=== PATIENT | female | born 1955 | race Caucasian/White ===

== ENCOUNTER 2019-07-14 01:31 | Day surgery (SDC) | payer MEDICARE, OTHER, SELFPAY ==
[2019-07-14 07:52] VITALS: BP 143/72; PULSE 87; RESP 16; TEMP 36.7; O2SAT 94
[2019-07-14] MEDS: LACTATED RINGERS 1,000 ML 150 ML IV CONT (08:01)
--- NOTE | 2019-07-14 08:22 | WPDANESEPPF ---
Anes - Initial Pre Proc Eval Procedure: Operation Date: 07/14/19 08:30 Proposed Procedures p Esophagogastroduodenoscopy - Kris Morelos MD Date/Time: 07/14/19 08:22 Surgeon: Kris Morelos MD Pre Op Diagnosis: Dysphagia/ Gerd Patient Data Age: 64 Gender: F Height: Weight: 48.6 kg Last Vital Signs Temp 36.7 C 07/14/19 07:52 Pulse 87 07/14/19 07:52 Resp 16 07/14/19 07:52 BP 143/72 H 07/14/19 07:52 Pulse Ox 94 07/14/19 07:52 Allergies Allergy/AdvReac Type Severity Reaction Status Date / Time erythromycin base Allergy Severe Unknown Verified 07/14/19 07:50 ethyl alcohol Allergy Severe Unknown Verified 07/14/19 07:50 clotrimazole Allergy Intermediate ALLERGY IS Verified 07/14/19 07:50 TO FUNGICIDAL FOOT ANTIBIOTIC levofloxacin Allergy Unknown Unknown Verified 07/14/19 07:50 pitavastatin Allergy Unknown Unknown Verified 07/14/19 07:50 Quinolones Allergy Unknown Unknown Verified 07/14/19 07:50 simvastatin Allergy Unknown Unknown Verified 07/14/19 07:50 FACTIVE Allergy Severe HIVES Uncoded 07/14/19 07:50 Home Medications Medication Instructions Recorded Confirmed Type esomeprazole magnesium 40 mg 40 mg PO DAILY 04/25/19 07/08/19 History capsule,delayed release levothyroxine 100 mcg tablet 100 mcg PO DAILY 04/25/19 07/08/19 History inhalational spacing device #1 each 05/13/19 Rx albuterol sulfate 90 mcg/actuation 1 puff INHALATION Q4H PRN #8.5 gm 06/15/19 07/08/19 Rx aerosol inhaler rosuvastatin 5 mg tablet 5 mg PO DAILY #30 tablet 06/17/19 07/08/19 Rx Vitamin C 1 tablet PO DAILY 07/14/19 07/14/19 History Vitamin D3 1 tablet PO DAILY 07/14/19 07/14/19 History potassium chloride 1 tablet PO DAILY 07/14/19 07/14/19 History Patient hx anesthesia problems: none Family hx anesthesia problems: none PMFSH Past Medical History Medical History Adenoma of left adrenal gland Age-related osteoporosis without current pathological fracture Chronic infection of sinus Colon polyps COPD (chronic obstructive pulmonary disease) Fracture of finger of right hand Hypercholesterolemia Hypothyroidism IBS (irritable bowel syndrome) IFG (impaired fasting glucose) Mixed hyperlipidemia Surgical History Surgical History (Updated 06/07/19 @ 16:32 by ISIDORO Decker) History of thyroidectomy S/P cholecystectomy Status post left breast lumpectomy Family History Family History Sibling Family history of malignant neoplasm of cervix Multiple myeloma Father Malignant neoplasm of prostate Family history of lung cancer Social History Social History Years smoked: 45 Smoking status: Light tobacco smoker Tobacco type: cigarettes Second hand tobacco smoke exposure: No Alcohol intake: never Substance use: never Substance use type: does not use Gender identity (if verbalized by the patient): Female Anes - Eval Final PreProcedure Day of Procedure 07/14/19 08:22 Patient weight: normal Heart: regular rate and rhythm Lungs: clear to auscultation Airway: Mallampati scale class II, special considerations poor opening and other (hx of left TMJ surgery) Neurological: alert and oriented Last oral intake: >/= 8 hours ASA classification: III Emergent: no Anesthetic plan: proceed Anesthesia type and monitoring: general Informed Consent: The patient's anesthetic plan and its attendant risks and benefits were discussed with the patient/family/POA. Questions were solicited and answers provided to the satisfaction of the patient/family/POA.
--- NOTE | 2019-07-14 08:45 | WPDGICN ---
Assessment and Plan Additional Plan This is a 64-year-old white female patient seen in evaluation at the request of Dr. Blake Urban. Patient reports difficulty swallowing. She notices more difficulty with solid foods such as meat. Food seems to catch in the mid portion of the chest and is worse over the last 6 months. Sometimes she will also have excess phlegm in her throat with this. She will vomit to relieve herself. Patient has taken Nexium for some time. She has had no recent heartburn. In 2006 had an EGD with pyloric channel ulcer. She has also been treated for GE reflux disease. Past medical history is significant for previous cholecystectomy. In 2006 had a colon polyp. Most recent colonoscopy was 2016. Family history is noncontributory. Allergies include erythromycin. Levofloxacin. Quinolones. Simvastatin. Medications include albuterol, Nexium. Levothyroxine. Potassium. Rosuvastatin. In vitamins. Review of systems is significant for about 8 lb weight loss over recent months. Physical exam reveals her to be alert. Vital signs stable. HEENT exam unremarkable. Lungs are clear to auscultation and percussion. Heart is without murmur or extra sounds. Abdominal exam bowel sounds are present soft nontender with no hepatosplenomegaly. Digital external rectal exam deferred. Extremities reveal several fingers on her right hand bandaged. Impression 1. Dysphagia. 2. GE reflux disease. 3. History of colon polyps. 4. Weight loss. Plan is to proceed with EGD to assess for her swallowing difficulties. Also because of history of peptic ulcer disease and GE reflux. Continue proton pump inhibitors for now along with anti-reflux measures. A colonoscopy is suggested in 2020. Because of her prior history of colon polyps. GI Consult Note Consult date/time: 07/14/19 08:45 HPI: Gi Valenzuela is a 64 year old female [facility] Past Medical History Medical History Adenoma of left adrenal gland Age-related osteoporosis without current pathological fracture Chronic infection of sinus Colon polyps COPD (chronic obstructive pulmonary disease) Fracture of finger of right hand Hypercholesterolemia Hypothyroidism IBS (irritable bowel syndrome) IFG (impaired fasting glucose) Mixed hyperlipidemia Surgical History Surgical History (Updated 06/07/19 @ 16:32 by ISIDORO Decker) History of thyroidectomy S/P cholecystectomy Status post left breast lumpectomy Family History Family History Sibling Family history of malignant neoplasm of cervix Multiple myeloma Father Malignant neoplasm of prostate Family history of lung cancer Social History Social History Years smoked: 45 Smoking status: Light tobacco smoker Tobacco type: cigarettes Second hand tobacco smoke exposure: No Alcohol intake: never Substance use: never Substance use type: does not use Gender identity (if verbalized by the patient): Female Meds Home Medications and Allergies Home Medications Medication Instructions Recorded Confirmed Type esomeprazole magnesium 40 mg 40 mg PO DAILY 04/25/19 07/08/19 History capsule,delayed release levothyroxine 100 mcg tablet 100 mcg PO DAILY 04/25/19 07/08/19 History inhalational spacing device #1 each 05/13/19 Rx albuterol sulfate 90 mcg/actuation 1 puff INHALATION Q4H PRN #8.5 gm 06/15/19 07/08/19 Rx aerosol inhaler rosuvastatin 5 mg tablet 5 mg PO DAILY #30 tablet 06/17/19 07/08/19 Rx Vitamin C 1 tablet PO DAILY 07/14/19 07/14/19 History Vitamin D3 1 tablet PO DAILY 07/14/19 07/14/19 History potassium chloride 1 tablet PO DAILY 07/14/19 07/14/19 History Allergies Allergy/AdvReac Type Severity Reaction Status Date / Time erythromycin base Allergy Severe Unknown Verified 07/14/19 07:50 ethyl alcohol Allergy Sever
[2019-07-14 09:12] VITALS: BP 103/59; PULSE 75; RESP 22; O2SAT 95
[2019-07-14 09:22] VITALS: BP 120/75; PULSE 80; RESP 21; O2SAT 95
[2019-07-14 09:32] VITALS: BP 123/77; PULSE 79; RESP 22; O2SAT 97
[2019-07-14 09:42] VITALS: BP 119/80; PULSE 80; RESP 23; O2SAT 98
== END 2019-07-14 09:45 | disposition home or self-care (01) ==
PROVIDERS: PCP Family Medicine; Visit Provider Internal Medicine Gastroenterology
PROC: 0DJ08ZZ Inspection of Upper Intestinal Tract, Via Natural or Artificial Opening Endoscopic (ICD-10-PCS; CPT 43235; principal; 2019-07-14 08:30)
DX: Q39.4 Esophageal web (principal); K21.9 Gastro-esophageal reflux disease without esophagitis; R63.4 Abnormal weight loss; J44.9 Chronic obstructive pulmonary disease, unspecified; E78.00 Pure hypercholesterolemia, unspecified; E03.9 Hypothyroidism, unspecified; E78.2 Mixed hyperlipidemia; K58.9 Irritable bowel syndrome, unspecified; M81.0 Age-related osteoporosis without current pathological fracture; F17.210 Nicotine dependence, cigarettes, uncomplicated
CPT/HCPCS: 43235; 43450; J2001; J2704; J7120

== ENCOUNTER → 2019-07-21 12:27 | Outpatient (CLI) | payer MEDICARE, OTHER, SELFPAY ==
--- NOTE | ~2019-07-21 | CT_ITS ---
EXAMINATION: CT lung screening EXAM DATE: 07/21/2019 12:51 INDICATION: Personal history of nicotine dependence. TECHNIQUE: Spiral low dose CT of the chest without contrast. Axial, coronal and sagittal images were reviewed. The dose-length product (DLP) for this examination was 46.62 mGy-cm. The exposure was ta ilored according to patient size (auto mA exposure control), and iterative reconstruction (ASIR) was used as additional dose reduction technique. Comparison is made to prior examination from 03/12/2018. FINDINGS: There is mild emphysema and moderate hyperinflation. Some small predominantly linear opaci ties likely postinfectious which are unchanged. Tracheobronchial tree is patent. There is no media stinal, hilar or axillary lymphadenopathy. There are no pleural or pericardial effusions. There i s no pneumothorax. Heart normal in size. There is mild coronary arterial calcification, arterial sclerosis. Some left adrenal gland hypertrophy or small adenomas. There is thoracic spondylosis with out osteoblastic or osteolytic lesions identified. IMPRESSION: Lung-RADS category 1, negative (<1%chance of malignancy); recommend continued LDCT screen ing in 1 year. > Reviewed, dictated and finalized at location B. ETING SERVICES SPECIALIST IMPRESSION: Lung-RADS category 1, negative (<1%chance of malignancy); recommend continued LDCT screening in 1 year. >
--- NOTE | ~2019-07-21 | MM_ITS ---
EXAMINATION: MM screening [facility] w [facility] HISTORY: Screening mammogram TECHNIQUE: Craniocaudal and mediolateral oblique 3-D tomosynthesis images were obtained and synthetic 2-D images were generated. CAD analysis was submitted and interpreted. COMPARISON: 03/18/2018 diagnostic right digital mammogram 03/12/2018, 03/03/2017, 06/15/2015 bilateral digital screening mammogram examinations BREAST PARENCHYMAL COMPOSITION: The breasts are heterogeneously dense, which may obscure small masses . FINDINGS: Occasional benign calcifications. There is no evidence of suspicious mass, calcification, o r architectural distortion to suggest malignancy in either breast. There has been no suspicious inter patricia change. IMPRESSION: 1. No mammographic evidence of malignancy. 2. Recommend routine screening mammography in one year. BI-RADS Category 2: Benign finding(s). Reviewed, dictated and finalized at location A. SS CONSULTANT
== END ==
PROVIDERS: PCP Family Medicine; Visit Provider Physician Assistant
DX: Z12.31 Encounter for screening mammogram for malignant neoplasm of breast (principal); Z12.2 Encounter for screening for malignant neoplasm of respiratory organs; Z87.891 Personal history of nicotine dependence
CPT/HCPCS: 77063; 77067; G0297

== ENCOUNTER 2019-08-16 15:05 | Outpatient (CLI) | payer MEDICARE, OTHER, SELFPAY ==
[2019-08-16 15:25] LABS: Basophils Absolute Auto 0.1 K/mm3 (0.0-0.1); Basophils Percent Auto 0.5 % (0.2-1.2); Eosinophils Absolute Auto 0.1 K/mm3 (0-0.3); Eosinophils Percent Auto 0.9 % (0-4.4); Hematocrit 39.8 % (37.0-47.0); Hemoglobin 13.2 g/dL (12.0-15.0); Immature Granulocyte Absolute 0.03 K/mm3 (0.00-0.031); Immature Granulocyte Percent A 0.3 % (0-0.5); Lymphocytes Absolute Auto 2.28 K/mm3 (0.9-3.2); Lymphocytes Percent Auto 20.6 % (18.3-44.2); Mean Corpuscular HGB Conc 33.2 g/dl (32-36); Mean Corpuscular Hemoglobin 30.5 pg (26-34); Mean Corpuscular Volume 91.9 fl (80-100); Mean Platelet Volume 8.6 fl (7.4-10.4); Monocytes Percent Auto 8.8 % (2.6-8.5); Neutrophils Absolute Auto 7.7 K/mm3 (1.3-6.7); Neutrophils Percent Auto 68.9 % (45.5-73.1); Platelet Count Result 343 k/mm3 (150-375); Red Blood Count 4.33 M/mm3 (4.2-5.4); Red Cell Distribution Width 13.4 % (11.5-14.5); White Blood Count 11.1 K/mm3 (4.5-10.0)
[2019-08-16 16:46] LABS: Alanine Aminotransferase 14 U/L (4-35); Albumin Level 4.3 g/dL (3.5-5.1); Alkaline Phosphatase 64 U/L (38-126); Aspartate Amino Transferase 22 U/L (14-36); Bilirubin,Total 0.3 mg/dL (0.2-1.3); Blood Urea Nitrogen 12 mg/dL (7-17); CRP < 0.5 mg/dL (<1.0); Calcium 9.4 mg/dL (8.4-10.2); Carbon Dioxide 32 mmol/L (22-30); Chloride 101 mmol/L (98-107); Estimated Glomerular Filt Rate 50; Glucose 98 mg/dL (65-105); Lactate Dehydrogenase 385 U/L (313-618); Potassium 4.7 mmol/L (3.4-5.0); Sodium 139 mmol/L (137-145)
[2019-08-16 16:54] LABS: Erythrocyte Sedimentation Rate 19 mm/hr (0-20)
== END 2019-08-16 15:06 | disposition home or self-care (01) ==
LOC: ANHLAB 15:10
PROVIDERS: PCP Family Medicine; Visit Provider Internal Medicine Hematology & Oncology
DX: D72.829 Elevated white blood cell count, unspecified (principal)
CPT/HCPCS: 36415; 80053; 83615; 85025; 85652; 86140; 88184; 88185

== ENCOUNTER 2020-02-28 13:24 | Outpatient (CLI) | payer MEDICARE, OTHER, SELFPAY ==
[2020-02-28 13:40] LABS: Basophils Absolute Auto 0.1 K/mm3 (0.0-0.1); Basophils Percent Auto 0.6 % (0.2-1.2); Eosinophils Absolute Auto 0.1 K/mm3 (0-0.3); Eosinophils Percent Auto 0.9 % (0-4.4); Hematocrit 39.8 % (37.0-47.0); Hemoglobin 13.5 g/dL (12.0-15.0); Immature Granulocyte Absolute 0.04 K/mm3 (0.00-0.031); Immature Granulocyte Percent A 0.4 % (0-0.5); Lymphocytes Absolute Auto 3.36 K/mm3 (0.9-3.2); Lymphocytes Percent Auto 31.4 % (18.3-44.2); Mean Corpuscular HGB Conc 33.9 g/dl (32-36); Mean Corpuscular Hemoglobin 30.9 pg (26-34); Mean Corpuscular Volume 91.1 fl (80-100); Mean Platelet Volume 8.8 fl (7.4-10.4); Monocytes Absolute Auto 0.8 K/mm3 (0.1-0.6); Monocytes Percent Auto 7.7 % (2.6-8.5); Neutrophils Absolute Auto 6.3 K/mm3 (1.3-6.7); Platelet Count Result 336 k/mm3 (150-375); Red Blood Count 4.37 M/mm3 (4.2-5.4); Red Cell Distribution Width 13.3 % (11.5-14.5); White Blood Count 10.7 K/mm3 (4.5-10.0)
== END 2020-02-28 13:25 | disposition home or self-care (01) ==
PROVIDERS: PCP Family Medicine; Visit Provider Internal Medicine Hematology & Oncology
DX: D72.829 Elevated white blood cell count, unspecified (principal)
CPT/HCPCS: 36415; 85025

== ENCOUNTER 2020-04-12 11:41 | Outpatient (NON) | payer MEDICARE, OTHER, SELFPAY ==
[2020-04-12 21:15] LABS: SARS-CoV-2 RNA PCR Negative
== END 2020-04-12 11:42 ==
LOC: ANHCOVIDDT 11:43
PROVIDERS: PCP Family Medicine; Visit Provider Nurse Practitioner Family
DX: R05 Cough (principal); R09.89 Other specified symptoms and signs involving the circulatory and respiratory systems; Z20.828 Contact with and (suspected) exposure to other viral communicable diseases
CPT/HCPCS: 87635; C9803; U0003

== ENCOUNTER 2020-04-24 02:44 | Outpatient (CLI) | payer MEDICARE, OTHER, SELFPAY ==
[2020-04-24 19:47] LABS: SARS-CoV-2 RNA PCR Negative
== END 2020-04-24 02:45 | disposition home or self-care (01) ==
LOC: ANHCOVIDDT 02:44
PROVIDERS: PCP Family Medicine; Visit Provider Internal Medicine Gastroenterology
DX: Z01.818 Encounter for other preprocedural examination (principal); Z20.828 Contact with and (suspected) exposure to other viral communicable diseases
CPT/HCPCS: 87635; C9803; U0003

== ENCOUNTER 2020-04-27 04:16 | Day surgery (SDC) | payer MEDICARE, OTHER, SELFPAY ==
[2020-04-20 14:00] VITALS: BMI 21.3
[2020-04-27 07:57] VITALS: BP 147/71; PULSE 96; RESP 16; TEMP 36.9; O2SAT 92
--- NOTE | 2020-04-27 08:08 | WPDANESEPPF ---
Anes - Initial Pre Proc Eval Procedure: Operation Date: 04/27/20 09:00 Proposed Procedures p Esophagogastroduodenoscopy - Kris Morelos MD Date/Time: 04/27/20 08:08 Surgeon: Kris Morelos MD Pre Op Diagnosis: Esophageal Stricture Patient Data Age: 65 Gender: F Height: 5 ft 2 in Weight: 49 kg Last Vital Signs Temp 36.9 C 04/27/20 07:57 Pulse 96 04/27/20 07:57 Resp 16 04/27/20 07:57 BP 147/71 H 04/27/20 07:57 Pulse Ox 92 04/27/20 07:57 Allergies Allergy/AdvReac Type Severity Reaction Status Date / Time erythromycin base Allergy Severe Unknown Verified 04/27/20 07:56 ethyl alcohol Allergy Severe Unknown Verified 04/27/20 07:56 clotrimazole Allergy Intermediate ALLERGY IS Verified 04/27/20 07:56 TO FUNGICIDAL FOOT ANTIBIOTIC levofloxacin Allergy Unknown Unknown Verified 04/27/20 07:56 pitavastatin Allergy Unknown Unknown Verified 04/27/20 07:56 Quinolones Allergy Unknown Unknown Verified 04/27/20 07:56 simvastatin Allergy Unknown Unknown Verified 04/27/20 07:56 FACTIVE Allergy Severe HIVES Uncoded 04/27/20 07:56 Home Medications Medication Instructions Recorded Confirmed Type inhalational spacing device #1 each 05/13/19 04/27/20 Rx Vitamin C 1 tablet PO DAILY 07/14/19 04/27/20 History Vitamin D3 1 tablet PO DAILY 07/14/19 04/27/20 History blood sugar diagnostic #100 each 10/24/19 04/27/20 Rx esomeprazole magnesium 40 mg 40 mg PO DAILY #90 cap 11/09/19 04/27/20 Rx capsule,delayed release levothyroxine 100 mcg tablet 100 mcg PO DAILY #90 tablet 01/31/20 04/27/20 Rx lancets #100 ea 03/22/20 04/27/20 Rx albuterol sulfate 90 mcg/actuation 1 puff INHALATION Q4H PRN #8.5 gm 04/12/20 04/27/20 Rx aerosol inhaler rosuvastatin 10 mg PO DAILY 04/20/20 04/27/20 History Patient hx anesthesia problems: none Family hx anesthesia problems: none PMFSH Past Medical History Medical History Adenoma of left adrenal gland Age-related osteoporosis without current pathological fracture Chronic infection of sinus Colon polyps COPD (chronic obstructive pulmonary disease) Depression Fracture of finger of right hand HTN (hypertension) Hypercholesterolemia Hypothyroidism IBS (irritable bowel syndrome) IFG (impaired fasting glucose) Mixed hyperlipidemia Surgical History Surgical History History of thyroidectomy S/P cholecystectomy Status post left breast lumpectomy Family History Family History Sibling Family history of malignant neoplasm of cervix Multiple myeloma Father Malignant neoplasm of prostate Family history of lung cancer Social History Social History Years smoked: 45 Smoking status: Light tobacco smoker Tobacco type: cigarettes Second hand tobacco smoke exposure: No Alcohol intake: never Substance use: unknown Substance use type: unknown Living arrangements: with family Gender identity (if verbalized by the patient): Female Spiritual care concerns: No Anes - Eval Final PreProcedure Day of Procedure 04/27/20 08:08 Patient weight: normal Heart: regular rate and rhythm Lungs: decreased breath sounds Airway: Mallampati scale class II Neurological: alert and oriented Last oral intake: >/= 8 hours ASA classification: III Emergent: no Anesthetic plan: proceed Anesthesia type and monitoring: general GIVS and standard monitoring Informed Consent: The patient's anesthetic plan and its attendant risks and benefits were discussed with the patient/family/POA. Questions were solicited and answers provided to the satisfaction of the patient/family/POA.
[2020-04-27] MEDS: LACTATED RINGERS 1,000 ML 150 ML IV CONT (08:12)
--- NOTE | 2020-04-27 09:04 | WPDGICN ---
Assessment and Plan Assessment and plan (1) Dysphagia: Code(s): R13.10 - Dysphagia, unspecified Status: Acute Assessment and Plan: Patient has persistent problems swallowing. Food catches mid substernal portion the chest. Patient known to have esophageal stricture by previous endoscopy. His presumed this has recurred. Most likely on the basis of acid reflux disease. Plan to continue Nexium or similar proton pump inhibitor. Anti-reflux measures encourage. Follow-up EGD will be planned for possible dilatation. GI Consult Note Consult date/time: 04/27/20 09:04 HPI: Gi Valenzuela is a 65 year old female Complains of food catching in the mid substernal portion of the chest. She states solid foods will not pass easily. Symptoms she states now have recurred. She denies any weight loss. She denies any bleeding. Denies any heartburn. Current medications include Nexium 40 mg p.o. daily. Family history is noncontributory. Review of Systems Review of Systems: All systems reviewed & are unremarkable except as noted in HPI and below PMFSH Past Medical History Medical History Adenoma of left adrenal gland Age-related osteoporosis without current pathological fracture Chronic infection of sinus Colon polyps COPD (chronic obstructive pulmonary disease) Depression Fracture of finger of right hand HTN (hypertension) Hypercholesterolemia Hypothyroidism IBS (irritable bowel syndrome) IFG (impaired fasting glucose) Mixed hyperlipidemia Surgical History Surgical History History of thyroidectomy S/P cholecystectomy Status post left breast lumpectomy Family History Family History Sibling Family history of malignant neoplasm of cervix Multiple myeloma Father Malignant neoplasm of prostate Family history of lung cancer Social History Social History Years smoked: 45 Smoking status: Light tobacco smoker Tobacco type: cigarettes Second hand tobacco smoke exposure: No Alcohol intake: never Substance use: unknown Substance use type: unknown Living arrangements: with family Gender identity (if verbalized by the patient): Female Spiritual care concerns: No Meds Home Medications and Allergies Home Medications Medication Instructions Recorded Confirmed Type inhalational spacing device #1 each 05/13/19 04/27/20 Rx Vitamin C 1 tablet PO DAILY 07/14/19 04/27/20 History Vitamin D3 1 tablet PO DAILY 07/14/19 04/27/20 History blood sugar diagnostic #100 each 10/24/19 04/27/20 Rx esomeprazole magnesium 40 mg 40 mg PO DAILY #90 cap 11/09/19 04/27/20 Rx capsule,delayed release levothyroxine 100 mcg tablet 100 mcg PO DAILY #90 tablet 01/31/20 04/27/20 Rx lancets #100 ea 03/22/20 04/27/20 Rx albuterol sulfate 90 mcg/actuation 1 puff INHALATION Q4H PRN #8.5 gm 04/12/20 04/27/20 Rx aerosol inhaler rosuvastatin 10 mg PO DAILY 04/20/20 04/27/20 History Allergies Allergy/AdvReac Type Severity Reaction Status Date / Time erythromycin base Allergy Severe Unknown Verified 04/27/20 07:56 ethyl alcohol Allergy Severe Unknown Verified 04/27/20 07:56 clotrimazole Allergy Intermediate ALLERGY IS Verified 04/27/20 07:56 TO FUNGICIDAL FOOT ANTIBIOTIC levofloxacin Allergy Unknown Unknown Verified 04/27/20 07:56 pitavastatin Allergy Unknown Unknown Verified 04/27/20 07:56 Quinolones Allergy Unknown Unknown Verified 04/27/20 07:56 simvastatin Allergy Unknown Unknown Verified 04/27/20 07:56 FACTIVE Allergy Severe HIVES Uncoded 04/27/20 07:56 Vital Signs Vital Signs - 24 hr 04/27/20 07:57 Temperature 98.5 F Pulse Rate 96 Respiratory Rate 16 Blood Pressure 147/71 H Pulse Oximetry 92 Exam Narrative: Exam Narrative: Physical ex
[2020-04-27] MEDS: BENZOCAINE (*SP) 60 ML SPRAY CAN (HURRICAINE) 1 SPRAY MUCOUS MEM (09:11)
[2020-04-27 09:27] VITALS: BP 119/67; PULSE 80; RESP 20; O2SAT 97
[2020-04-27 09:37] VITALS: BP 123/71; PULSE 81; RESP 19; O2SAT 91
[2020-04-27 09:47] VITALS: BP 150/86; PULSE 81; RESP 21; O2SAT 92
== END 2020-04-27 10:06 | disposition home or self-care (01) ==
PROVIDERS: PCP Family Medicine; Visit Provider Internal Medicine Gastroenterology
PROC: 0DJ08ZZ Inspection of Upper Intestinal Tract, Via Natural or Artificial Opening Endoscopic (ICD-10-PCS; CPT 43235; principal; 2020-04-27 09:00)
DX: R13.10 Dysphagia, unspecified (principal); M81.0 Age-related osteoporosis without current pathological fracture; I10 Essential (primary) hypertension; E78.00 Pure hypercholesterolemia, unspecified; E78.2 Mixed hyperlipidemia; E03.9 Hypothyroidism, unspecified; K58.9 Irritable bowel syndrome, unspecified; J44.9 Chronic obstructive pulmonary disease, unspecified; F17.210 Nicotine dependence, cigarettes, uncomplicated
CPT/HCPCS: 43450; 43235; J2001; J2704; J7120

== ENCOUNTER → 2020-09-03 09:52 | Outpatient (CLI) | payer MEDICARE, OTHER, SELFPAY ==
--- NOTE | ~2020-09-03 | CT_ITS ---
EXAMINATION: CT lung screening DATE: 09/03/2020 10:06 INDICATION: Personal history of tobacco dependence TECHNIQUE: Computed tomography (CT) of the chest was performed without intravenous contrast. The dose -length product was 38.09 mGy-cm. Automated exposure control and iterative reconstruction technique w ere employed. COMPARISON: CT dated 07/21/2019 FINDINGS: There is atherosclerosis of the aorta and coronary arteries. No significant pleural or atilio cardial effusion. Mildly enlarged mediastinal lymph node measuring 1 cm, most likely reactive. Mild e mphysema. No endobronchial lesions. There is right middle lobe atelectasis/scarring. No suspicious pu lmonary nodules or masses. The upper abdomen is unremarkable. No lytic or blastic lesions. Mild thora cic spondylosis. IMPRESSION: 1. . Lung-RADS category 1: Negative. Continue annual screening with noncontrast low-dose chest CT in 12 months. Reviewed, dictated and finalized at location B.
--- NOTE | ~2020-09-03 | DEXA_ITS ---
Bone Density Report Name: Gi Valenzuela Age: 65 Sex: Female Ethnicity: White Date of : 1955 Indication: osteopenia; asthma or emphysema; postmenopausal Referring Provider: Blake Urban Study: Bone densitometry was performed. Exam Date: September 03, 2020 Accession number: [id number] Bone Density: Region BMD T-score Z-score Classification AP Spine (L1-L4) 0.948 -0.9 1.0 Normal Femoral Neck (Left) 0.593 -2.3 -0.7 Osteopenia Total Hip (Left) 0.672 -2.2 -0.9 Osteopenia Femoral Neck (Right) 0.562 -2.6 -1.0 Osteoporosis Total Hip (Right) 0.660 -2.3 -1.0 Osteopenia Total Hip Mean 0.666 -2.3 -1.0 Osteopenia World Health Organization criteria for BMD impression classify patients as: Normal (T-score at or above -1.0), Osteopenia (T-score between -1.0 and -2.5), or Osteoporosis (T-score at or below -2.5). 10-year Fracture Risk: FRAX not reported because: Some T-score for Spine Total or Hip Total or Femoral Neck at or below -2.5 Previous Exams: Region Exam Age BMD T-score BMD Change BMD Change Date g/cm2 vs Baseline vs Previous AP Spine(L1-L4) 09/03/2020 65 0.948 -0.9 -0.053* -0.053* 03/12/2018 63 1.001 -0.4 Total Hip(Left) 09/03/2020 65 0.672 -2.2 -0.069* -0.069* 03/12/2018 63 0.742 -1.6 Total Hip(Right) 09/03/2020 65 0.660 -2.3 -0.064* -0.064* 03/12/2018 63 0.724 -1.8 *Denotes significance at 95% confidence level, LSC for AP Spine = 0.022 g/cm2, LSC for Total Hip = 0.027 g/cm2 Clinical Information Provided by Patient: Smokes Has used the following medications: Vitamin D, Calcium Has the following medical conditions: Asthma or Emphysema Patient maximum height was 63 Menopause Age: 39 No regular weight bearing exercise Does not regularly consume dairy products Onset of menses at age 12 Number of children 2 Impression: The patient has osteoporosis, based on the Right Femoral Neck T-score. The patient has risk factors, including: smoking. The BMD for the AP Spine(L1-L4) decreased, changing by -0.053 since the last DXA exam. The BMD for the Total Hip(Left) decreased, changing by -0.069 since the last DXA exam. The BMD for the Total Hip(Right) decreased, changing by -0.064 since the last DXA exam. Discussion: INCREASED RISK OF FRACTURE. BONE DENSITY IS UNDESIRABLY LOW AT ONE OR MORE SKELETAL SITES, CONSISTENT WITH POSTMENOPAUSAL OSTEOPOROSIS. This patient's lowest T-score meets the [employer]
== END ==
PROVIDERS: PCP Family Medicine; Visit Provider Family Medicine
DX: Z12.2 Encounter for screening for malignant neoplasm of respiratory organs (principal); Z87.891 Personal history of nicotine dependence; Z78.0 Asymptomatic menopausal state; M85.852 Other specified disorders of bone density and structure, left thigh; M85.851 Other specified disorders of bone density and structure, right thigh; M81.0 Age-related osteoporosis without current pathological fracture
CPT/HCPCS: 71271; 77080

== ENCOUNTER → 2020-10-03 15:20 | Outpatient (CLI) | payer MEDICARE, OTHER, SELFPAY ==
--- NOTE | ~2020-10-03 | MM_ITS ---
EXAMINATION: MM screening [facility] BI [facility] HISTORY: Screening mammogram TECHNIQUE: Craniocaudal and mediolateral oblique 3-D tomosynthesis images were obtained and synthetic 2-D images were generated. CAD analysis was submitted and interpreted. COMPARISON: 07/21/2019 bilateral digital screening mammogram 03/18/2018 diagnostic right digital mammogram 03/12/2018, 03/03/2017, 06/15/2015 bilateral digital screening mammogram examinations BREAST PARENCHYMAL COMPOSITION: The breasts are extremely dense, which lowers the sensitivity of mamm ography. FINDINGS: Occasional benign calcifications. There is no evidence of suspicious mass, calcification, o r architectural distortion to suggest malignancy in either breast. There has been no suspicious inter patricia change. IMPRESSION: 1. No mammographic evidence of malignancy. 2. Recommend routine screening mammography in one year. BI-RADS Category 2: Benign finding(s). Reviewed, dictated and finalized at location A.
== END ==
PROVIDERS: PCP Family Medicine; Visit Provider Family Medicine
DX: Z12.31 Encounter for screening mammogram for malignant neoplasm of breast (principal)
CPT/HCPCS: 77063; 77067

== ENCOUNTER 2020-12-03 10:37 | Inpatient (IN) | payer MEDICARE, OTHER, SELFPAY ==
[2020-12-03] VITALS (10 sets, daily range): BP systolic 121–132; BP diastolic 66–76; PULSE 86–103; RESP 13–22; TEMP 36.3–36.7; O2SAT 90–96; BMI 17.7
--- NOTE | ~2020-12-03 | CT_ITS ---
EXAMINATION: CTA chest PE protocol DATE: 12/03/2020 12:49 INDICATION: Shortness of breath TECHNIQUE: Computed tomography angiography (CTA) of the chest was performed with 100 mL Omnipaque-350 intravenous contrast timed to evaluate the pulmonary arteries. Coronal maximum intensity projection 3D-reconstructions were created by the technologist. The dose-length product (DLP) was 142.15 mGy-cm. Automated exposure control and iterative reconstruction technique were employed. COMPARISON: 09/03/2020 FINDINGS: The pulmonary arteries are well-opacified. No pulmonary embolism is identified. There is mi ld emphysema. An opacity of the right lower lobe has the appearance of mucous plugging. There are pat dora small bilateral groundglass and nodular opacities. There is no pleural effusion or pneumothorax. No pathologically enlarged thoracic lymph nodes are identified. The heart size is normal. Cholecystec panchito clips are noted in the right upper quadrant. There is mild thoracic spondylosis. IMPRESSION: 1. No pulmonary embolism. 2. Patchy bilateral nodular and groundglass opacities, consistent with infection/inflammation. Reviewed, dictated and finalized at location B. IMPRESSION: 1. No pulmonary embolism. 2. Patchy bilateral nodular and groundglass opacities, consistent with infectio n/inflammation.
--- NOTE | ~2020-12-03 | XR_ITS ---
EXAMINATION: XR chest 2V DATE: 12/06/2020 09:11 INDICATION: Leukocytosis TECHNIQUE: AP and lateral views of the chest are obtained. COMPARISON: 12/03/2020 FINDINGS: The lungs are free of acute opacities. There is no pleural effusion or pneumothorax. The ca rdiomediastinal silhouette is normal. There is mild thoracic spondylosis. IMPRESSION: 1. No acute cardiopulmonary abnormality. Reviewed, dictated and finalized at location B.
--- NOTE | ~2020-12-03 | XR_ITS ---
EXAMINATION: XR chest 1V portable INDICATION: Shortness of breath TECHNIQUE: Portable AP chest at 1233 hours COMPARISON: 03/08/2013 FINDINGS: The lungs are hyperinflated but free of acute opacities. There is no pleural effusion or pn eumothorax. The cardiomediastinal silhouette is normal. There is calcified atherosclerosis of the aor ta. IMPRESSION: 1. Hyperinflation without acute cardiopulmonary abnormality. Reviewed, dictated and finalized at location B.
--- NOTE | 2020-12-03 11:32 | ECG_ITS ---
Measurements Intervals [place] Rate: 91 P: 91 FL: 139 QRS: -55 QRSD: 94 T: 61 QT: 306 QTc: 377 Interpretive Statements SINUS RHYTHM POSSIBLE RIGHT ATRIAL ENLARGEMENT LEFT AXIS DEVIATION LOW QRS VOLTAGE IN LIMB LEADS BORDERLINE R WAVE PROGRESSION, ANTERIOR LEADS BORDERLINE T WAVE ABNORMALITY- HIGH LATERAL LEADS BASELINE ARTIFACT- I, II, III, AVR, AVL,A VF, V1-V2, V5 BORDERLINE ECG Electronically Signed On 12-03-2020 11:38:46 CDT by Jed Yu D.O.
--- NOTE | 2020-12-03 11:39 | ED.SOB ---
HPI - SOB/Dyspnea General Chief Complaint: Shortness of Breath/Dyspnea Stated Complaint: difficulty breathing Time Seen by Provider: 12/03/20 11:19 Source: patient, family and RN notes reviewed Mode of arrival: ambulatory Limitations: no limitations History of Present Illness HPI Narrative: This is a 65 year old female with history of COPD who presents for evaluation of shortness of breath. She states her symptoms started 3 day ago with productive cough and worsening shortness of breath. She has been using her albuterol inhaler 4 times a day with minimal relief. She also reports runny nose, sore throat but she denies fever , chest pain, nausea, vomiting or diarrhea. She notes she was vaccinated for COVID in August. Her reports patient has been dealing with poor appetite and weight loss for several months, and her PCP has been evaluating. He also notes patient had pneumonia a few years ago. Related Data Home Medications Medication Instructions Recorded Confirmed Vitamin C 1 tablet PO DAILY 07/14/19 12/03/20 Vitamin D3 1 tablet PO DAILY 07/14/19 12/03/20 levothyroxine 88 mcg PO HS 12/03/20 12/03/20 Allergies Allergy/AdvReac Type Severity Reaction Status Date / Time erythromycin base Allergy Severe Unknown Verified 10/19/20 11:01 ethyl alcohol Allergy Severe Unknown Verified 10/19/20 11:01 gemifloxacin [From Factive] Allergy Severe Hives Verified 12/03/20 14:20 clotrimazole Allergy Intermediate ALLERGY IS Verified 10/19/20 11:01 TO FUNGICIDAL FOOT ANTIBIOTIC levofloxacin Allergy Unknown Unknown Verified 10/19/20 11:01 pitavastatin Allergy Unknown Unknown Verified 10/19/20 11:01 Quinolones Allergy Unknown Unknown Verified 10/19/20 11:01 simvastatin Allergy Unknown Unknown Verified 10/19/20 11:01 Review of Systems Review of Systems: All systems reviewed & are unremarkable except as noted in HPI and below PMFSH Past Medical History Medical History Adenoma of left adrenal gland Age-related osteoporosis without current pathological fracture Chronic infection of sinus Colon polyps COPD (chronic obstructive pulmonary disease) Depression Fracture of finger of right hand HTN (hypertension) Hypercholesterolemia Hypothyroidism IBS (irritable bowel syndrome) IFG (impaired fasting glucose) Mixed hyperlipidemia Surgical History Surgical History H/O cataract extraction September 2020 History of thyroidectomy S/P cholecystectomy Status post left breast lumpectomy Family History Family History Sibling Family history of malignant neoplasm of cervix Multiple myeloma Father Malignant neoplasm of prostate Family history of lung cancer Social History Social History (Updated 10/19/20 @ 11:02 by Lillie Mares CMA) Years smoked: 45 Smoking status: Light tobacco smoker Second hand tobacco smoke exposure: No Alcohol intake: current Drinks per week: 2 Substance use: never Substance use type: does not use Gender identity (if verbalized by the patient): Female Sexual Orientation (if Verbalized by the Patient): Straight or Heterosexual Spiritual care concerns: No Exam Const: General: alert Nutritional Appearance: thin Orientation/consciousness: patient oriented x3 Eyes: EOM: EOMs intact bilaterally Chest: Chest palpation & inspection: normal inspection of the chest Resp: Effort & Inspection: normal respiratory effort and tachypneic Auscultation: rales and diminished lung sounds Cardio: Rate: regular rate Rhythm: regular rhythm Heart sounds: no murmurs GI: GI Palp: Yes Soft to palpation, No Tenderness to palpation present (GI) and No Guarding due to palpation present (GI) Auscultation: bowels sounds not normal Neuro: General: patient oriented x3, moves all extremities and CN's II-XI intact
[2020-12-03] MEDS: ALBUTEROL SULFATE NEB 2.5 MG/0.5 ML INH 5 MG INHALATION (11:58)
[2020-12-03] MEDS: IPRATROPIUM BR 0.02% INH SOLN 0.5 MG/2.5 ML VIAL INHALATION (11:59)
[2020-12-03 12:00] LABS: Alveolar/Arterial O2 Gradient 59.2 mmHg; Base Excess ABG 2.5 mEq/l (+/-2.0); Fractional Inspired Oxygen 28 %; HCO3 ABG 28.5 mEq/l (22.0-26.0); Oxygen Content ABG 18.1 %vol (16.0-22.0); Oxygen Saturation ABG 95.7 % (95.0-100.0); PCO2 ABG 49.7 mmHg (35.0-45.0); PO2 ABG 81.8 mmHg (80.0-100.0); PO2 FiO2 Ratio Arterial Blood 2.92 %; Total Hemoglobin 13.5 g/dL (12.0-18.0); pH ABG 7.377 (7.350-7.450)
[2020-12-03 12:01] LABS: Device NASAL CANNULA; Modified Allen's Test Pass; Site Drawn LEFT RADIAL
[2020-12-03] MEDS: predniSONE 20 MG TABLET 40 MG PO (12:04)
[2020-12-03 12:05] LABS: Basophils Percent Auto 0.7 % (0.2-1.2); Eosinophils Percent Auto 0.2 % (0-4.4); Hematocrit 38.3 % (37.0-47.0); Hemoglobin 12.8 g/dL (12.0-15.0); Immature Granulocyte Absolute 0.02 K/mm3 (0.00-0.031); Immature Granulocyte Percent A 0.3 % (0-0.5); Lymphocytes Percent Auto 19.2 % (18.3-44.2); Mean Corpuscular HGB Conc 33.4 g/dl (32-36); Mean Corpuscular Hemoglobin 30.8 pg (26-34); Mean Corpuscular Volume 92.3 fl (80-100); Mean Platelet Volume 8.7 fl (7.4-10.4); Monocytes Absolute Auto 0.6 K/mm3 (0.1-0.6); Monocytes Percent Auto 9.8 % (2.6-8.5); Neutrophils Percent Auto 69.8 % (45.5-73.1); Platelet Count Result 217 k/mm3 (150-375); Red Blood Count 4.15 M/mm3 (4.2-5.4); Red Cell Distribution Width 13.4 % (11.5-14.5); White Blood Count 5.7 K/mm3 (4.5-10.0)
[2020-12-03 12:11] LABS: Lactic Acid Reflex 0.8 mmol/L (0.7-2.1)
[2020-12-03 12:12] LABS: Alanine Aminotransferase 16 U/L (4-35); Alkaline Phosphatase 92 U/L (38-126); Anion Gap 2 mmol/L (8-16); Aspartate Amino Transferase 33 U/L (14-36); Bilirubin,Total 0.1 mg/dL (0.2-1.3); Blood Urea Nitrogen 5 mg/dL (7-17); Calcium 8.7 mg/dL (8.4-10.2); Carbon Dioxide 32 mmol/L (22-30); Chloride 97 mmol/L (98-107); Estimated CRCL calculation 48 ml/min; Estimated Glomerular Filt Rate > 60; Glucose 139 mg/dL (65-105); Sodium 131 mmol/L (137-145)
[2020-12-03 12:14] LABS: INR 0.9; Prothrombin Time 12.6 Seconds (11.1-14.7)
[2020-12-03 12:15] LABS: Partial Thromboplastin Time 34.1 SECONDS (22.3-36.8)
[2020-12-03 12:16] LABS: CRP 0.9 mg/dL (<1.0)
[2020-12-03 12:18] LABS: D Dimer 0.73 ug/mL (<0.48)
--- NOTE | 2020-12-03 16:08 | ADMGEN ---
This patient, Gi Valenzuela, was admitted to [facility] Surg Room 326-01. Patient/family oriented to hospital policies and general routines including ID bracelet, bed and alarms, visiting hours, pain management, procedures, bathroom and other care routines, personal items, smoking policy, room service/diet, and visiting hours. Information on how to activate the Rapid Response Team has been discussed. Patient/Family are encouraged to report perceived risks to care and to ask questions if they do not understand what they are told or what they should do.
--- NOTE | 2020-12-03 16:10 | PC.NURSE ---
Patient states in past year she has had covid vaccine, shingles vaccine, pneu vaccine and flu vaccine.
[2020-12-03] MEDS: SODIUM CHLORIDE 0.9% IV 1,000 ML 125 ML IV CONT (16:46)
[2020-12-04] VITALS (11 sets, daily range): BP systolic 120–159; BP diastolic 53–78; PULSE 89–100; RESP 14–18; TEMP 36.3–36.9; O2SAT 92–97; BMI 17.7
--- NOTE | 2020-12-04 01:03 | PM.IMHP ---
H&P: HPI History of Present Illness Date/Time: 12/04/20 01:03 Chief Complaint: SHORTNESS OF BREATH Narrative: THIS IS A 65-YEAR-OLD FEMALE WITH PAST MEDICAL HISTORY SIGNIFICANT COPD/EMPHYSEMA, HYPOTHYROIDISM, GERD, SHE IS A CURRENT EVERYDAY SMOKER OF 4-5 CIGARETTES. PATIENT PRESENTED TO THE EMERGENCY ROOM DUE TO PROGRESSIVELY WORSENING SHORTNESS OF BREATH FOR THE LAST 2 WEEKS OR SO. SHE DENIES ANY CHILLS ANY RIGORS ANY FEVER HAS HAD COUGH PRODUCTIVE OF GREENISH PHLEGM. HAS HAD POOR APPETITE HOWEVER STATES THAT THIS HAS BEEN AN ONGOING PROBLEM FOR THE LAST 3 YEARS LOSS OF TASTE WELL PATIENT HAS HAD 3 PRIOR OR COVID-19 RULED OUT. PATIENT WAS RECENTLY HAD A BIRTHDAY [employer] SHE WAS VACCINATED IN AUGUST AGAINST COVID-19 PRELIMINARY WORKUP HAS BEEN ESSENTIALLY NONREVEALING HOWEVER AN ABG SHOWED A PCO2 OF 49 PATIENT HAS BEEN PLACED IN GENERAL [facility] FOR FURTHER MANAGEMENT AND TREATMENT AND EVALUATION. Review of Systems Review of Systems: Narrative: PATIENT PRESENTED TO EMERGENCY ROOM DUE TO WORSENING SHORTNESS OF BREATH COUGH PRODUCTIVE OF GREENISH SPUTUM Constitutional: Constitutional: Denies chills, Reports fatigue, Reports lethargy, Reports malaise and Reports poor appetite Eyes: Eyes: Denies change in vision ENT: Denies nasal congestion, Denies nasal discharge and Denies nasal obstruction Cardiovascular: Cardiovascular: Denies chest pain, Denies irregular heart rhythm, Denies radiating jaw, neck or arm pain, Denies palpitations, Denies dyspnea, Denies dyspnea on exertion and Denies orthopnea Respiratory: Respiratory: Reports change in phlegm color, Reports cough, Reports excessive phlegm production and Reports dyspnea Gastrointestinal: Gastrointestinal: Denies diarrhea, Denies nausea and Denies vomiting Genitourinary: Genitourinary: Denies dysuria Musculoskeletal: Musculoskeletal: Denies arthralgias and Denies muscle weakness Integumentary/Breasts: Skin/Breast: Denies rash Neurologic: Denies focal weakness and Denies Sensory deficit (Neuro) Psychiatric: Psychiatric: Reports no additional psychiatric complaints Endocrine: Endocrine: Reports no additional endocrine complaints Hematologic/Lymphatic: Hematologic/Lymphatic: Reports no additional hematologic/lymphatic complaints Allergic/Immunologic: Allergic/Immunologic: Reports no additional allergic/immunologic complaints PMFSH Past Medical History Medical History Adenoma of left adrenal gland Age-related osteoporosis without current pathological fracture Chronic infection of sinus Colon polyps COPD (chronic obstructive pulmonary disease) Depression Fracture of finger of right hand HTN (hypertension) Hypercholesterolemia Hypothyroidism IBS (irritable bowel syndrome) IFG (impaired fasting glucose) Mixed hyperlipidemia Surgical History Surgical History H/O cataract extraction September 2020 History of thyroidectomy S/P cholecystectomy Status post left breast lumpectomy Family History Family History Sibling Family history of malignant neoplasm of cervix Multiple myeloma Father Malignant neoplasm of prostate Family history of lung cancer Social History Social History (Updated 10/19/20 @ 11:02 by Lillie Mares CMA) Years smoked: 45 Smoking status: Light tobacco smoker Second hand tobacco smoke exposure: No Alcohol intake: current Drinks per week: 2 Substance use: never Substance use type: does not use Gender identity (if verbalized by the patient): Female Sexual Orientation (if Verbalized by the Patient): Straight or Heterosexual Spiritual care concerns: No Meds Home Medications and Allergies Home Medications Medication Instructions Recorded Confirmed Type inhalational spacing device #1 each 05/13/19 12/03/20 Rx Vitamin C 1 tablet PO DAILY 07/14/19 12/03/20 His
[2020-12-04] MEDS: SODIUM CHLORIDE 0.9% IV 1,000 ML 125 ML IV CONT ×2 (05:57→14:35)
[2020-12-04] MEDS: methylPREDNISolone SOD SUCC 125 MG VIAL 60 MG IV PUSH ×3 (05:58→19:56)
[2020-12-04 06:24] LABS: Basophils Percent Auto 0.6 % (0.2-1.2); Hematocrit 35.1 % (37.0-47.0); Hemoglobin 11.8 g/dL (12.0-15.0); Immature Granulocyte Absolute 0.01 K/mm3 (0.00-0.031); Immature Granulocyte Percent A 0.3 % (0-0.5); Lymphocytes Absolute Auto 1.18 K/mm3 (0.9-3.2); Mean Corpuscular HGB Conc 33.6 g/dl (32-36); Mean Corpuscular Hemoglobin 30.8 pg (26-34); Mean Corpuscular Volume 91.6 fl (80-100); Mean Platelet Volume 9.1 fl (7.4-10.4); Monocytes Absolute Auto 0.7 K/mm3 (0.1-0.6); Monocytes Percent Auto 20.1 % (2.6-8.5); Neutrophils Absolute Auto 1.4 K/mm3 (1.3-6.7); Platelet Count Result 201 k/mm3 (150-375); Red Blood Count 3.83 M/mm3 (4.2-5.4); Red Cell Distribution Width 13.2 % (11.5-14.5); White Blood Count 3.3 K/mm3 (4.5-10.0)
[2020-12-04 06:39] LABS: Anion Gap 3 mmol/L (8-16); Blood Urea Nitrogen 5 mg/dL (7-17); Calcium 8.4 mg/dL (8.4-10.2); Carbon Dioxide 29 mmol/L (22-30); Chloride 103 mmol/L (98-107); Estimated CRCL calculation 64 ml/min; Estimated Glomerular Filt Rate > 60; Glucose 111 mg/dL (65-105); Sodium 135 mmol/L (137-145)
[2020-12-04] MEDS: PANTOPRAZOLE 40 MG TABLET PO (08:13)
--- NOTE | 2020-12-04 12:47 | P.PNIM_ITS ---
Progress Note: A&P Assessment and Plan (1) Bilateral pneumonia: Qualifiers: Lung location: unspecified part of lung Pneumonia type: due to unspecified organism Qualified Code(s): J18.9 - Pneumonia, unspecified organism Code(s): J18.9 - Pneumonia, unspecified organism Status: Acute Assessment and Plan: * CTA showed ground glass opacities * Supplement oxygen * Suspected CAP * Azithromycin 500mg and Ceftriaxone 1gm Q24 * Supplemental Oxygen * Methylprednisone 60mg IV Q8hr * Blood culture * Covid pending * Sputum culture ordered * Deescalate antibiotics when cultures come back (2) Acute exacerbation of chronic obstructive airways disease: Code(s): J44.1 - Chronic obstructive pulmonary disease with (acute) exacerbation Status: Acute Assessment and Plan: * Patient stated that she has been short of breath for 2 weeks * Sputum changes noted and been more than normal * Albuterol PRN * Solumedrol 60mg IV Q8hr * Azithromycin 500mg IV Daily * Supportive care * Supplemental oxygen, wean to maintain an SPO2 >90% (3) Unintentional weight loss: Code(s): R63.4 - Abnormal weight loss Status: Acute Assessment and Plan: * Probably from no taste or appetite * Patient is underweight * Dietary supplements order * Security Escort consult (4) HTN (hypertension): Qualifiers: Hypertension type: essential hypertension Qualified Code(s): I10 - Essential (primary) hypertension Code(s): I10 - Essential (primary) hypertension Status: Acute Assessment and Plan: * BP is 142/69 * Not on medications * Add medications if needed * Trend blood pressures (5) Type 2 diabetes mellitus without complications: Qualifiers: Diabetes mellitus termite inspector insulin use: without alf use Qualified Code(s): E11.9 - Type 2 diabetes mellitus without complications Code(s): E11.9 - Type 2 diabetes mellitus without complications Status: Acute Assessment and Plan: * Blood sugar ranges 98-140 so far * Trend glucose * Consider accu checks * labs in the am (6) GERD (gastroesophageal reflux disease): Qualifiers: Esophagitis presence: without esophagitis Qualified Code(s): K21.9 - Gastro-esophageal reflux disease without esophagitis Code(s): K21.9 - Gastro-esophageal reflux disease without esophagitis Status: Acute Assessment and Plan: * Takes esomeprazole at home * Change to protonix 40mg PO daily Time Spent With Patient Time with patient: Greater than 35 minutes Subjective Date/time seen: 12/04/20 11:00 Interval history: Patient is a 65 year old female With a past medical history of COPD emphysema, hypothyroidism, GERD, and long-time smoker. Patient did report to the ED yesterday for evaluation shortness of breath for the last 2 weeks. Today patient said that her sputum has been different than normal thicker and more green however today she said it is getting better and is loosening up well. Patient also stated that she stop smoking about 6 days ago and is not going to smoke and she also states that she has lost her taste and appetite around 3 years ago which is probably due from this cigarette smoking. Patient is currently being tested for COVID which is still pending she also stated that she was vaccinated back in August. CT results did show that the patient did have bilateral ground-glass opacities resemb
--- NOTE | 2020-12-04 12:47 | PM.IMPN ---
Progress Note: A&P Assessment and Plan (1) Bilateral pneumonia: Qualifiers: Lung location: unspecified part of lung Pneumonia type: due to unspecified organism Qualified Code(s): J18.9 - Pneumonia, unspecified organism Code(s): J18.9 - Pneumonia, unspecified organism Status: Acute Assessment and Plan: CTA showed ground glass opacities Supplement oxygen Suspected CAP Azithromycin 500mg and Ceftriaxone 1gm Q24 Supplemental Oxygen Methylprednisone 60mg IV Q8hr Blood culture Covid pending Sputum culture ordered Deescalate antibiotics when cultures come back (2) Acute exacerbation of chronic obstructive airways disease: Code(s): J44.1 - Chronic obstructive pulmonary disease with (acute) exacerbation Status: Acute Assessment and Plan: Patient stated that she has been short of breath for 2 weeks Sputum changes noted and been more than normal Albuterol PRN Solumedrol 60mg IV Q8hr Azithromycin 500mg IV Daily Supportive care Supplemental oxygen, wean to maintain an SPO2 >90% (3) Unintentional weight loss: Code(s): R63.4 - Abnormal weight loss Status: Acute Assessment and Plan: Probably from no taste or appetite Patient is underweight Dietary supplements order Officer Lieutenant consult (4) HTN (hypertension): Qualifiers: Hypertension type: essential hypertension Qualified Code(s): I10 - Essential (primary) hypertension Code(s): I10 - Essential (primary) hypertension Status: Acute Assessment and Plan: BP is 142/69 Not on medications Add medications if needed Trend blood pressures (5) Type 2 diabetes mellitus without complications: Qualifiers: Diabetes mellitus half-way insulin use: without half-way use Qualified Code(s): E11.9 - Type 2 diabetes mellitus without complications Code(s): E11.9 - Type 2 diabetes mellitus without complications Status: Acute Assessment and Plan: Blood sugar ranges 98-140 so far Trend glucose Consider accu checks labs in the am (6) GERD (gastroesophageal reflux disease): Qualifiers: Esophagitis presence: without esophagitis Qualified Code(s): K21.9 - Gastro-esophageal reflux disease without esophagitis Code(s): K21.9 - Gastro-esophageal reflux disease without esophagitis Status: Acute Assessment and Plan: Takes esomeprazole at home Change to protonix 40mg PO daily Time Spent With Patient Time with patient: Greater than 35 minutes Subjective Date/time seen: 12/04/20 11:00 Interval history: Patient is a 65 year old female With a past medical history of COPD emphysema, hypothyroidism, GERD, and long-time smoker. Patient did report to the ED yesterday for evaluation shortness of breath for the last 2 weeks. Today patient said that her sputum has been different than normal thicker and more green however today she said it is getting better and is loosening up well. Patient also stated that she stop smoking about 6 days ago and is not going to smoke and she also states that she has lost her taste and appetite around 3 years ago which is probably due from this cigarette smoking. Patient is currently being tested for COVID which is still pending she also stated that she was vaccinated back in August. CT results did show that the patient did have bilateral ground-glass opacities resembling infection or inflammation. Patient at this time currently denies shortness of breath, chest pain, chills, sweats, lightheadedness, dizziness, fatigue or generalized weakness. Review of Systems Review of Systems: All systems reviewed & are unremarkable except as noted in HPI and below Exam Const: General: cooperative, comfortable, no acute distress, well developed, alert, awake, Physically active and ill appearing acutely Nutritional Appearance: thin and underweight Tripp
[2020-12-04 17:12] LABS: SARS-CoV-2 RNA PCR Negative
[2020-12-04] MEDS: LEVOTHYROXINE SODIUM 88 MCG TABLET PO (19:56)
[2020-12-05] VITALS (10 sets, daily range): BP systolic 143–175; BP diastolic 69–89; PULSE 90–103; RESP 18; TEMP 36.1–36.9; O2SAT 91–93
[2020-12-05] MEDS: SODIUM CHLORIDE 0.9% IV 1,000 ML 125 ML IV CONT ×3 (00:59→18:30)
[2020-12-05] MEDS: methylPREDNISolone SOD SUCC 125 MG VIAL 60 MG IV PUSH (05:41)
[2020-12-05 06:20] LABS: Basophils Percent Auto 0.2 % (0.2-1.2); Hemoglobin 13.3 g/dL (12.0-15.0); Immature Granulocyte Absolute 0.02 K/mm3 (0.00-0.031); Immature Granulocyte Percent A 0.4 % (0-0.5); Lymphocytes Absolute Auto 1.38 K/mm3 (0.9-3.2); Lymphocytes Percent Auto 24.6 % (18.3-44.2); Mean Corpuscular HGB Conc 34.1 g/dl (32-36); Mean Corpuscular Hemoglobin 30.7 pg (26-34); Mean Corpuscular Volume 90.1 fl (80-100); Mean Platelet Volume 9.2 fl (7.4-10.4); Monocytes Absolute Auto 0.6 K/mm3 (0.1-0.6); Monocytes Percent Auto 10.9 % (2.6-8.5); Neutrophils Absolute Auto 3.6 K/mm3 (1.3-6.7); Neutrophils Percent Auto 63.9 % (45.5-73.1); Platelet Count Result 244 k/mm3 (150-375); Red Blood Count 4.33 M/mm3 (4.2-5.4); White Blood Count 5.6 K/mm3 (4.5-10.0)
[2020-12-05 06:36] LABS: Alanine Aminotransferase 25 U/L (4-35); Alkaline Phosphatase 94 U/L (38-126); Anion Gap 6 mmol/L (8-16); Aspartate Amino Transferase 45 U/L (14-36); Bilirubin,Total < 0.1 mg/dL (0.2-1.3); Blood Urea Nitrogen 7 mg/dL (7-17); Calcium 8.7 mg/dL (8.4-10.2); Carbon Dioxide 31 mmol/L (22-30); Chloride 97 mmol/L (98-107); Estimated CRCL calculation 78 ml/min; Estimated Glomerular Filt Rate > 60; Glucose 160 mg/dL (65-105); Magnesium 1.7 mg/dL (1.6-2.3); Potassium 3.8 mmol/L (3.4-5.0); Sodium 134 mmol/L (137-145)
[2020-12-05] MEDS: ASCORBIC ACID 500 MG TABLET 1000 MG PO (08:46)
[2020-12-05] MEDS: CHOLECALCIFEROL 1,000 UNITS TABLET 2000 UNITS PO (08:46)
[2020-12-05] MEDS: PANTOPRAZOLE 40 MG TABLET PO (08:47)
[2020-12-05] MEDS: ACETAMINOPHEN 500 MG TABLET 1000 MG PO (08:50)
--- NOTE | 2020-12-05 12:13 | PC.NURSE ---
Vitamin C and Vitamin D verified on 12/04/20 @ 1823 and ordered for 12/04/20 @ 0900. Medications not given, non-administered for 12/04/20, so dose today could be given at correct time.
--- NOTE | 2020-12-05 12:31 | P.PNIM_ITS ---
Progress Note: A&P Assessment and Plan (1) Bilateral pneumonia: Qualifiers: Lung location: unspecified part of lung Pneumonia type: due to unspecified organism Qualified Code(s): J18.9 - Pneumonia, unspecified organism Code(s): J18.9 - Pneumonia, unspecified organism Status: Acute Assessment and Plan: * CTA showed ground glass opacities * WBC 5.6 today * Supplement oxygen * Suspected CAP * Azithromycin 500mg and Ceftriaxone 1gm Q24 * Supplemental Oxygen * Methylprednisone 60mg IV Q8hr, will decrease to 40mg IV Q8hr * Blood culture no growth day 2 * Covid negative * Sputum culture grew gram positive cocci preliminary * Deescalate antibiotics when cultures come back (2) Acute exacerbation of chronic obstructive airways disease: Code(s): J44.1 - Chronic obstructive pulmonary disease with (acute) exacerbation Status: Acute Assessment and Plan: * Patient stated that she has been short of breath for 2 weeks * Sputum changes noted and been more than normal * Albuterol PRN * Solumedrol 60mg IV Q8hr, will decrease to 40mg IV Q8hr * Azithromycin 500mg IV Daily * Supportive care * Supplemental oxygen, wean to maintain an SPO2 >90% (3) Unintentional weight loss: Code(s): R63.4 - Abnormal weight loss Status: Acute Assessment and Plan: * Probably from no taste or appetite * Patient is underweight * Dietary supplements order * Underwear Finisher consult (4) HTN (hypertension): Qualifiers: Hypertension type: essential hypertension Qualified Code(s): I10 - Essential (primary) hypertension Code(s): I10 - Essential (primary) hypertension Status: Acute Assessment and Plan: * BP is 158/75 * Not on medications * Add medications if needed * Trend blood pressures (5) Type 2 diabetes mellitus without complications: Qualifiers: Diabetes mellitus [facility] insulin use: without implementation consultant use Qualifi ed Code(s): E11.9 - Type 2 diabetes mellitus without complications Code(s): E11.9 - Type 2 diabetes mellitus without complications Status: Acute Assessment and Plan: * Blood sugar ranges 98-140 so far * Today glucose 160 * Trend glucose * accu checks ACHS * labs in the am (6) GERD (gastroesophageal reflux disease): Qualifiers: Esophagitis presence: without esophagitis Qualified Code(s): K21.9 - Gastro-esophageal reflux disease without esophagitis Code(s): K21.9 - Gastro-esophageal reflux disease without esophagitis Status: Acute Assessment and Plan: * Takes esomeprazole at home * Change to protonix 40mg PO daily Subjective Date/time seen: 12/05/20 12:31 Interval history: Patient is a 65 year old female With a past medical history of COPD emphysema, hypothyroidism, GERD, and long-time smoker. Patient did report to the ED yesterday for evaluation shortness of breath for the last 2 weeks. Today patient is sitting in the chair and still has a cough but claims that it is not as bad as it has been. She also stated that her sputum production is now white and thin. She is on room air and stated that she can get short of breath sometimes with exerction. She also stated that she has diarrhea that she said started this morning. 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
--- NOTE | 2020-12-05 12:31 | PM.IMPN ---
Progress Note: A&P Assessment and Plan (1) Bilateral pneumonia: Qualifiers: Lung location: unspecified part of lung Pneumonia type: due to unspecified organism Qualified Code(s): J18.9 - Pneumonia, unspecified organism Code(s): J18.9 - Pneumonia, unspecified organism Status: Acute Assessment and Plan: CTA showed ground glass opacities WBC 5.6 today Supplement oxygen Suspected CAP Azithromycin 500mg and Ceftriaxone 1gm Q24 Supplemental Oxygen Methylprednisone 60mg IV Q8hr, will decrease to 40mg IV Q8hr Blood culture no growth day 2 Covid negative Sputum culture grew gram positive cocci preliminary Deescalate antibiotics when cultures come back (2) Acute exacerbation of chronic obstructive airways disease: Code(s): J44.1 - Chronic obstructive pulmonary disease with (acute) exacerbation Status: Acute Assessment and Plan: Patient stated that she has been short of breath for 2 weeks Sputum changes noted and been more than normal Albuterol PRN Solumedrol 60mg IV Q8hr, will decrease to 40mg IV Q8hr Azithromycin 500mg IV Daily Supportive care Supplemental oxygen, wean to maintain an SPO2 >90% (3) Unintentional weight loss: Code(s): R63.4 - Abnormal weight loss Status: Acute Assessment and Plan: Probably from no taste or appetite Patient is underweight Dietary supplements order Library Information Technician consult (4) HTN (hypertension): Qualifiers: Hypertension type: essential hypertension Qualified Code(s): I10 - Essential (primary) hypertension Code(s): I10 - Essential (primary) hypertension Status: Acute Assessment and Plan: BP is 158/75 Not on medications Add medications if needed Trend blood pressures (5) Type 2 diabetes mellitus without complications: Qualifiers: Diabetes mellitus salvage determiner insulin use: without salvage determiner use Qualified Code(s): E11.9 - Type 2 diabetes mellitus without complications Code(s): E11.9 - Type 2 diabetes mellitus without complications Status: Acute Assessment and Plan: Blood sugar ranges 98-140 so far Today glucose 160 Trend glucose accu checks ACHS labs in the am (6) GERD (gastroesophageal reflux disease): Qualifiers: Esophagitis presence: without esophagitis Qualified Code(s): K21.9 - Gastro-esophageal reflux disease without esophagitis Code(s): K21.9 - Gastro-esophageal reflux disease without esophagitis Status: Acute Assessment and Plan: Takes esomeprazole at home Change to protonix 40mg PO daily Subjective Date/time seen: 12/05/20 12:31 Interval history: Patient is a 65 year old female With a past medical history of COPD emphysema, hypothyroidism, GERD, and long-time smoker. Patient did report to the ED yesterday for evaluation shortness of breath for the last 2 weeks. Today patient is sitting in the chair and still has a cough but claims that it is not as bad as it has been. She also stated that her sputum production is now white and thin. She is on room air and stated that she can get short of breath sometimes with exerction. She also stated that she has diarrhea that she said started this morning. 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 Patient at this time currently denies shortness of breath, chest pain, chills, sweats, lightheadedness, dizziness, fatigue or generalized weakness. Review of Systems Review of Systems: All systems reviewed & are unremarkable except as noted in HPI and below Exam Narrative: Exam Narrative: LAYING IN BED IN NO ACUTE DISTRESS Const: General: cooperative, comfortable, no acute distress, well devel
[2020-12-05] MEDS: methylPREDNISolone SOD SUCC 40 MG VIAL IV PUSH (17:08)
[2020-12-05 17:25] LABS: Glucose Point of Care 256 mg/dl (65-105)
[2020-12-05] MEDS: LEVOTHYROXINE SODIUM 88 MCG TABLET PO (21:28)
[2020-12-05 21:39] LABS: Glucose Point of Care 172 mg/dl (65-105)
[2020-12-06] VITALS: BP 171/79; PULSE 97; PULSE 98; RESP 18; TEMP 36.6; O2SAT 90
[2020-12-06] MEDS: SODIUM CHLORIDE 0.9% IV 1,000 ML 125 ML IV CONT (02:55)
[2020-12-06 04:00] VITALS: BP 166/81; PULSE 102; PULSE 98; RESP 18; TEMP 36.1; O2SAT 93
[2020-12-06 06:20] LABS: Alanine Aminotransferase 28 U/L (4-35); Albumin Level 4.3 g/dL (3.5-5.1); Alkaline Phosphatase 88 U/L (38-126); Anion Gap 6 mmol/L (8-16); Aspartate Amino Transferase 43 U/L (14-36); Bilirubin,Total 0.2 mg/dL (0.2-1.3); Blood Urea Nitrogen 6 mg/dL (7-17); Calcium 8.5 mg/dL (8.4-10.2); Carbon Dioxide 31 mmol/L (22-30); Chloride 93 mmol/L (98-107); Estimated CRCL calculation 78 ml/min; Estimated Glomerular Filt Rate > 60; Glucose 134 mg/dL (65-105); Magnesium 1.7 mg/dL (1.6-2.3); Potassium 3.2 mmol/L (3.4-5.0); Sodium 130 mmol/L (137-145)
[2020-12-06 06:27] LABS: Hemoglobin A1C 6.3 % (<5.7)
[2020-12-06 06:29] LABS: Basophils Percent Auto 0.2 % (0.2-1.2); Hematocrit 38.4 % (37.0-47.0); Hemoglobin 13.4 g/dL (12.0-15.0); Immature Granulocyte Absolute 0.04 K/mm3 (0.00-0.031); Immature Granulocyte Percent A 0.4 % (0-0.5); Lymphocytes Absolute Auto 2.06 K/mm3 (0.9-3.2); Mean Corpuscular HGB Conc 34.9 g/dl (32-36); Mean Corpuscular Hemoglobin 30.5 pg (26-34); Mean Corpuscular Volume 87.5 fl (80-100); Mean Platelet Volume 9.2 fl (7.4-10.4); Monocytes Absolute Auto 1.4 K/mm3 (0.1-0.6); Monocytes Percent Auto 12.5 % (2.6-8.5); Neutrophils Absolute Auto 7.4 K/mm3 (1.3-6.7); Neutrophils Percent Auto 67.9 % (45.5-73.1); Platelet Count Result 301 k/mm3 (150-375); Red Blood Count 4.39 M/mm3 (4.2-5.4); Red Cell Distribution Width 12.7 % (11.5-14.5); White Blood Count 10.8 K/mm3 (4.5-10.0)
[2020-12-06 08:00] VITALS: PULSE 106
[2020-12-06 08:10] LABS: Glucose Point of Care 130 mg/dl (65-105)
[2020-12-06] MEDS: CHOLECALCIFEROL 1,000 UNITS TABLET 2000 UNITS PO (08:31)
[2020-12-06] MEDS: ASCORBIC ACID 500 MG TABLET 1000 MG PO (08:31)
[2020-12-06] MEDS: PANTOPRAZOLE 40 MG TABLET PO (08:32)
[2020-12-06] MEDS: methylPREDNISolone SOD SUCC 40 MG VIAL IV PUSH (08:32)
[2020-12-06 09:21] LABS: NT Pro B Type Natriuretic Pept 863 pg/mL (5-100)
--- NOTE | 2020-12-06 11:21 | PCNFU ---
Nutrition Follow-Up Complete: Unintended weight loss as related to COPD as evidenced by 50 ibs weight loss reported in 3 months. Goal: Adequate intake of at least 75% of meals/supplements Progressing towards goal. We will continue current goal. Pt current nutrition is Regular with Glucerna shakes BID. Last recorded weight is 44 kg, no new weight to report. Bowel Motility:+BM reported 03/06 Labs Reviewed:Na 130,K 3.2,Glu 134 Meds Noted:Vit C, Synthroid,Vit D, SoluMedrol,Rocephin,Protonix, NS Additional Notes: Patient seen today for nutrition follow up. Currently eating a regular diet. Oral intake has been greater than 75% of meals. Patient states to drinking carnation instant breakfast at home for additional kcals, I would recommend to continue drinking diet supplements at home. Weight per patient has been down about 50 ibs in 3-4 months, patient states due to lack of appetite. Last HbA1c 6.3%. PO intake was encouraged, continue regular diet orders with Glucerna shakes providing an additional 220 kcals and 10 gms protein. Monitoring: RD will monitor every 5 days.
[2020-12-06] MEDS: POTASSIUM CHLORIDE 20 MEQ TABLET 40 MEQ PO (11:39)
[2020-12-06 11:58] LABS: Glucose Point of Care 206 mg/dl (65-105)
[2020-12-06 12:00] VITALS: PULSE 101
[2020-12-06] MEDS: INSULIN ASPART (*BKC) 100 UNITS/ML SUB-Q (13:08)
[2020-12-06] MEDS: FUROSEMIDE INJ 40 MG/4 ML VIAL IV PUSH (13:08)
[2020-12-06] MEDS: HYDROcodone/acetaminophen (*CRX) 5-325 MG TABLET 1 TAB PO (13:57)
--- NOTE | 2020-12-06 14:17 | P.DS_ITS ---
DS: Admitting Diagnosis Admitting Diagnosis Admitting Diagnosis: COPD exacerbation and Pneumonia DS: Discharge Diagnosis Discharge Diagnosis (1) Bilateral pneumonia: Qualifiers: Lung location: unspecified part of lung Pneumonia type: due to unspecified organism Qualified Code(s): J18.9 - Pneumonia, unspecified organism Code(s): J18.9 - Pneumonia, unspecified organism Status: Acute Assessment and Plan: * CTA showed ground glass opacities * WBC 5.6 today * Supplement oxygen * Suspected CAP * Azithromycin 500mg and Ceftriaxone 1gm Q24 * Supplemental Oxygen * Methylprednisone 60mg IV Q8hr, will decrease to 40mg IV Q8hr * Blood culture no growth day 2 * Covid negative * Sputum culture grew gram positive cocci preliminary * Deescalate antibiotics when cultures come back (2) Acute exacerbation of chronic obstructive airways disease: Code(s): J44.1 - Chronic obstructive pulmonary disease with (acute) exacerbation Status: Acute Assessment and Plan: * Patient stated that she has been short of breath for 2 weeks * Sputum changes noted and been more than normal * Albuterol PRN * Solumedrol 60mg IV Q8hr, will decrease to 40mg IV Q8hr * Azithromycin 500mg IV Daily * Supportive care * Supplemental oxygen, wean to maintain an SPO2 >90% (3) Unintentional weight loss: Code(s): R63.4 - Abnormal weight loss Status: Acute Assessment and Plan: * Probably from no taste or appetite * Patient is underweight * Dietary supplements order * Early Childhood Education Worker consult (4) HTN (hypertension): Qualifiers: Hypertension type: essential hypertension Qualified Code(s): I10 - Essential (primary) hypertension Code(s): I10 - Essential (primary) hypertension Status: Acute Assessment and Plan: * BP is 158/75 * Not on medications * Add medications if needed * Trend blood pressures (5) Type 2 diabetes mellitus without complications: Qualifiers: Diabetes mellitus exterminator helper termite insulin use: without residential use Qualif ied Code(s): E11.9 - Type 2 diabetes mellitus without complications Code(s): E11.9 - Type 2 diabetes mellitus without complications Status: Acute Assessment and Plan: * Blood sugar ranges 98-140 so far * Today glucose 160 * Trend glucose * accu checks ACHS * labs in the am (6) GERD (gastroesophageal reflux disease): Qualifiers: Esophagitis presence: without esophagitis Qualified Code(s): K21.9 - Gastro-esophageal reflux disease without esophagitis Code(s): K21.9 - Gastro-esophageal reflux disease without esophagitis Status: Acute Assessment and Plan: * Takes esomeprazole at home * Change to protonix 40mg PO daily DS: Summary Hospital Course Hospital Course: Patient is 65-year-old female with a past medical history of COPD, emphysema, hypothyroidism, GERD, who reported to the ED for evaluation of shortness of breath for the last 2 weeks. Since admission patient has been treated for COPD and pneumonia with IV antibiotics including Azithromycin and ceftriaxone. she was also started on IV steroids, breathing treatments, supplemental oxygen. Patient has been able to wean off the oxygen and blood culture show no growth. Patient was also tested for COVID which was also negative. Chest x-ray has also showed improvement from the initial and today's chest x-ray showed no acute infection or sys
--- NOTE | 2020-12-06 14:17 | PM.DS ---
DS: Admitting Diagnosis Admitting Diagnosis Admitting Diagnosis: COPD exacerbation and Pneumonia DS: Discharge Diagnosis Discharge Diagnosis (1) Bilateral pneumonia: Qualifiers: Lung location: unspecified part of lung Pneumonia type: due to unspecified organism Qualified Code(s): J18.9 - Pneumonia, unspecified organism Code(s): J18.9 - Pneumonia, unspecified organism Status: Acute Assessment and Plan: CTA showed ground glass opacities WBC 5.6 today Supplement oxygen Suspected CAP Azithromycin 500mg and Ceftriaxone 1gm Q24 Supplemental Oxygen Methylprednisone 60mg IV Q8hr, will decrease to 40mg IV Q8hr Blood culture no growth day 2 Covid negative Sputum culture grew gram positive cocci preliminary Deescalate antibiotics when cultures come back (2) Acute exacerbation of chronic obstructive airways disease: Code(s): J44.1 - Chronic obstructive pulmonary disease with (acute) exacerbation Status: Acute Assessment and Plan: Patient stated that she has been short of breath for 2 weeks Sputum changes noted and been more than normal Albuterol PRN Solumedrol 60mg IV Q8hr, will decrease to 40mg IV Q8hr Azithromycin 500mg IV Daily Supportive care Supplemental oxygen, wean to maintain an SPO2 >90% (3) Unintentional weight loss: Code(s): R63.4 - Abnormal weight loss Status: Acute Assessment and Plan: Probably from no taste or appetite Patient is underweight Dietary supplements order Commercial Property Manager consult (4) HTN (hypertension): Qualifiers: Hypertension type: essential hypertension Qualified Code(s): I10 - Essential (primary) hypertension Code(s): I10 - Essential (primary) hypertension Status: Acute Assessment and Plan: BP is 158/75 Not on medications Add medications if needed Trend blood pressures (5) Type 2 diabetes mellitus without complications: Qualifiers: Diabetes mellitus custodial insulin use: without adjunct faculty for medical terminology use Qualified Code(s): E11.9 - Type 2 diabetes mellitus without complications Code(s): E11.9 - Type 2 diabetes mellitus without complications Status: Acute Assessment and Plan: Blood sugar ranges 98-140 so far Today glucose 160 Trend glucose accu checks ACHS labs in the am (6) GERD (gastroesophageal reflux disease): Qualifiers: Esophagitis presence: without esophagitis Qualified Code(s): K21.9 - Gastro-esophageal reflux disease without esophagitis Code(s): K21.9 - Gastro-esophageal reflux disease without esophagitis Status: Acute Assessment and Plan: Takes esomeprazole at home Change to protonix 40mg PO daily DS: Summary Hospital Course Hospital Course: Patient is 65-year-old female with a past medical history of COPD, emphysema, hypothyroidism, GERD, who reported to the ED for evaluation of shortness of breath for the last 2 weeks. Since admission patient has been treated for COPD and pneumonia with IV antibiotics including Azithromycin and ceftriaxone. she was also started on IV steroids, breathing treatments, supplemental oxygen. Patient has been able to wean off the oxygen and blood culture show no growth. Patient was also tested for COVID which was also negative. Chest x-ray has also showed improvement from the initial and today's chest x-ray showed no acute infection or system processes. Vital signs and labs have been stable. Patient's A1c to come back at 6.3, education about diet control was given to patient. Patient was also educated about smoking cessation and offered patches and gum for support however politely declined. Today patient did denies chest pain, shortness of breath, nausea, vomiting, sweats, chills, fevers. Time spent discussing smoking cessation with patient: more than 10 minutes Status at Discharge Functional status at discharge: independen
== END 2020-12-06 15:55 | disposition home or self-care (01) | DRG 190 ==
LOC: ANHED 11:37 → ANH3MEDSUR 17:46
PROVIDERS: Admitting Provider Family Medicine; Emergency Provider General Practice; PCP Family Medicine; Visit Provider Nurse Practitioner
DX: J43.9 Emphysema, unspecified (principal); J18.9 Pneumonia, unspecified organism; Z68.1 Body mass index [BMI] 19.9 or less, adult; Z20.822 Contact with and (suspected) exposure to COVID-19; E11.9 Type 2 diabetes mellitus without complications; I10 Essential (primary) hypertension; K21.9 Gastro-esophageal reflux disease without esophagitis; E03.9 Hypothyroidism, unspecified; M81.0 Age-related osteoporosis without current pathological fracture; F32.9 Major depressive disorder, single episode, unspecified; K58.9 Irritable bowel syndrome, unspecified; E78.2 Mixed hyperlipidemia; R63.6 Underweight; F17.210 Nicotine dependence, cigarettes, uncomplicated; Z98.42 Cataract extraction status, left eye; Z98.41 Cataract extraction status, right eye; Z90.49 Acquired absence of other specified parts of digestive tract
CPT/HCPCS: 36415; 36600; 71045; 71046; 71275; 80048; 80053; 82805; 82948; 83036; 83605; 83735; 83880; 85025; 85380; 85610; 85730; 86140; 87040; 87070; 87077; 87186; 87205; 93005; 94640; 96365; 96375; 99285; A9270; C9803; J0131; J0456; J0696; J1815; J1940; J1956; J2920; J2930; J7030; J7512; Q9967; U0003; U0005

== ENCOUNTER 2020-12-08 11:33 | Inpatient (IN) | payer MEDICARE, OTHER, SELFPAY ==
[2020-12-08] VITALS (21 sets, daily range): BP systolic 140–183; BP diastolic 76–87; PULSE 90–103; RESP 18–33; TEMP 36.1–36.7; O2SAT 88–100; BMI 17.9
--- NOTE | ~2020-12-08 | XR_ITS ---
EXAMINATION: XR chest 2V DATE: 12/08/2020 12:02 INDICATION: Shortness of breath TECHNIQUE: AP and lateral views of the chest are obtained. COMPARISON: 12/06/2020 FINDINGS: The lungs are free of acute opacities. There is no pleural effusion or pneumothorax. The ca rdiomediastinal silhouette is normal. There is mild thoracic spondylosis. Cholecystectomy clips are n oted in the right upper quadrant. IMPRESSION: 1. No acute cardiopulmonary abnormality. Reviewed, dictated and finalized at location A.
--- NOTE | ~2020-12-08 | CT_ITS ---
EXAMINATION: CTA chest PE protocol DATE: 12/08/2020 14:02 INDICATION: Shortness of breath TECHNIQUE: Computed tomography angiography (CTA) of the chest was performed with 100 mL Omnipaque-350 intravenous contrast timed to evaluate the pulmonary arteries. Coronal maximum intensity projection 3D-reconstructions were created by the technologist. The dose-length product (DLP) was 151.06 mGy-cm. Automated exposure control and iterative reconstruction technique were employed. COMPARISON: 12/03/2020, 03/12/2018 FINDINGS: The pulmonary arteries are well-opacified. No pulmonary embolism is identified. There is mi ld emphysema. An area of apparent mucous plugging is again noted in the right lower lobe. The previou sly described patchy small groundglass and nodular opacities persist and have improved. There is no p leural effusion or pneumothorax. No pathologically enlarged thoracic lymph nodes are identified. The heart size is normal. There is mild thoracic spondylosis. Cholecystectomy clips are noted. Chronic no dular thickening is noted in the left adrenal gland There are changes of right thyroidectomy. IMPRESSION: 1. No pulmonary embolism identified. 2. Persistent but improved bilateral nodular groundglass opacities, consistent with resolving infecti on/inflammation. Reviewed, dictated and finalized at location A. IMPRESSION: 1. No pulmonary embolism identified. 2. Persistent but improved bilateral nodular groundglass opacities, consistent with resolving infection/inflammation.
--- NOTE | ~2020-12-08 | XR_ITS ---
EXAMINATION: XR chest 2V DATE: 12/10/2020 10:59 INDICATION: Shortness of breath TECHNIQUE: AP and lateral views of the chest are obtained. COMPARISON: 12/08/2020 FINDINGS: The lungs are free of acute opacities. There is no pleural effusion or pneumothorax. The ca rdiomediastinal silhouette is normal. There is mild thoracic spondylosis. Cholecystectomy clips are n oted. IMPRESSION: 1. No acute cardiopulmonary abnormality. Reviewed, dictated and finalized at location A.
--- NOTE | 2020-12-08 11:34 | ECG_ITS ---
Measurements Intervals Ethel Rate: 92 P: 84 IL: 149 QRS: -66 QRSD: 85 T: 73 QT: 342 QTc: 425 Interpretive Statements SINUS RHYTHM RIGHT ATRIAL ENLARGEMENT POSSIBLE LEFT ATRIAL ENLARGEMENT LEFT ANTERIOR FASCICULAR BLOCK BASELINE ARTIFACT- I, II, III, AVR, AVL, AVF, V1-V6 ABNORMAL ECG Electronically Signed On 12-08-2020 20:49:14 CDT by Jed Yu D.O.
[2020-12-08 11:54] LABS: Basophils Percent Auto 0.2 % (0.2-1.2); Eosinophils Percent Auto 0.1 % (0-4.4); Hematocrit 39.2 % (37.0-47.0); Hemoglobin 14.4 g/dL (12.0-15.0); Immature Granulocyte Absolute 0.13 K/mm3 (0.00-0.031); Immature Granulocyte Percent A 0.7 % (0-0.5); Lymphocytes Absolute Auto 1.85 K/mm3 (0.9-3.2); Lymphocytes Percent Auto 10.2 % (18.3-44.2); Mean Corpuscular HGB Conc 36.7 g/dl (32-36); Mean Corpuscular Volume 84.3 fl (80-100); Mean Platelet Volume 8.9 fl (7.4-10.4); Monocytes Absolute Auto 1.5 K/mm3 (0.1-0.6); Monocytes Percent Auto 8.3 % (2.6-8.5); Neutrophils Absolute Auto 14.5 K/mm3 (1.3-6.7); Neutrophils Percent Auto 80.5 % (45.5-73.1); Platelet Count Result 340 k/mm3 (150-375); Red Blood Count 4.65 M/mm3 (4.2-5.4); Red Cell Distribution Width 12.5 % (11.5-14.5); White Blood Count 18.1 K/mm3 (4.5-10.0)
--- NOTE | 2020-12-08 12:24 | ED.SOB ---
HPI - SOB/Dyspnea General Chief Complaint: Shortness of Breath/Dyspnea Stated Complaint: trouble breathing Time Seen by Provider: 12/08/20 12:08 Source: patient Mode of arrival: ambulatory Limitations: no limitations History of Present Illness HPI Narrative: Patient is a 65-year-old female complaining of shortness of breath started when she was discharged from the hospital 2 days ago. Patient states that she was admitted for the same complaint and was diagnosed with pneumonia. Patient has a history of COPD. Patient denies any chest pain, abdominal pain, nausea, vomiting, fever or chills. Patient has a history of COPD. Related Data Home Medications Medication Instructions Recorded Confirmed Vitamin C 1,000 mg PO DAILY 07/14/19 12/04/20 Vitamin D3 2,000 unit PO DAILY 07/14/19 12/04/20 levothyroxine 88 mcg PO HS 12/03/20 12/03/20 Allergies Allergy/AdvReac Type Severity Reaction Status Date / Time erythromycin base Allergy Severe Unknown Verified 10/19/20 11:01 ethyl alcohol Allergy Severe Unknown Verified 10/19/20 11:01 gemifloxacin [From Factive] Allergy Severe Hives Verified 12/03/20 14:20 clotrimazole Allergy Intermediate ALLERGY IS Verified 10/19/20 11:01 TO FUNGICIDAL FOOT ANTIBIOTIC levofloxacin Allergy Unknown Unknown Verified 10/19/20 11:01 pitavastatin Allergy Unknown Unknown Verified 10/19/20 11:01 Quinolones Allergy Unknown Unknown Verified 10/19/20 11:01 simvastatin Allergy Unknown Unknown Verified 10/19/20 11:01 Review of Systems Review of Systems: All systems reviewed & are unremarkable except as noted in HPI and below Constitutional: Constitutional: Denies body ache(s), Denies chills, Denies excessive sweating, Denies fatigue, Denies fever(s), Denies headache(s), Denies lethargy, Denies malaise, Denies weakness and Denies weight loss Eyes: Eyes: Denies blurry vision, Denies change in vision and Denies loss of vision ENT: Denies dizziness, Denies ear discharge, Denies headache(s), Denies lip swelling, Denies epistaxis, Denies nasal congestion, Denies neck pain, Denies throat swelling and Denies tongue swelling Cardiovascular: Cardiovascular: Denies chest pain, Denies chest pain at rest, Denies chest pain with activity, Denies diaphoresis, Denies rapid heart rate, Denies edema, Denies irregular heart rhythm, Denies lightheadedness and Denies palpitations Respiratory: Respiratory: Denies chest congestion and Denies hemoptysis Gastrointestinal: Gastrointestinal: Denies abdominal pain, Denies melena, Denies hematochezia, Denies diarrhea, Denies nausea, Denies vomiting and Denies hematemesis Musculoskeletal: Musculoskeletal: Denies abnormal gait, Denies deformity, Denies joint swelling, Denies limited range of motion, Denies neck pain and Denies numbness Neurologic: Denies Abnormal speech present, Denies abnormal gait, Denies confusion, Denies dizziness, Denies headache(s), Denies focal weakness, Denies loss of vision, Denies numbness, Denies Other visual disturbances, Denies Sensory deficit (Neuro) and Denies weakness Psychiatric: Psychiatric: Denies confusion, Denies depression, Denies auditory hallucinations, Denies homicidal ideation and Denies suicidal ideation Endocrine: Endocrine: Denies cold intolerance, Denies excessive sweating, Denies fatigue, Denies heat intolerance and Denies palpitations Hematologic/Lymphatic: Hematologic/Lymphatic: Denies easy bleeding and Denies easy bruising Allergic/Immunologic: Allergic/Immunologic: Denies lip swelling, Denies throat swelling and Denies tongue swelling PMFSH Past Medical History Medical History Adenoma of left adrenal gland Age-related osteoporosis without current pathological fracture Chronic infection of sinus Colon polyps COPD (chronic obstructive pulmonary disease) Depression Fracture of finger of right hand GERD (gastroesophageal reflux disease) HTN (hypertension) Hypercholesterole
[2020-12-08 12:29] LABS: Anion Gap 8 mmol/L (8-16); Blood Urea Nitrogen 11 mg/dL (7-17); Calcium 8.7 mg/dL (8.4-10.2); Carbon Dioxide 32 mmol/L (22-30); Chloride 76 mmol/L (98-107); Estimated CRCL calculation 64 ml/min; Estimated Glomerular Filt Rate > 60; Glucose 151 mg/dL (65-105); Potassium 3.4 mmol/L (3.4-5.0); Sodium 116 mmol/L (137-145)
[2020-12-08] MEDS: ALBUTEROL SULFATE NEB 2.5 MG/0.5 ML INH 5 MG INHALATION ×2 (12:36→19:46)
[2020-12-08] MEDS: IPRATROPIUM BR 0.02% INH SOLN 0.5 MG/2.5 ML VIAL INHALATION ×2 (12:37→19:46)
[2020-12-08 13:11] LABS: D Dimer 0.51 ug/mL (<0.48)
[2020-12-08 13:18] LABS: NT Pro B Type Natriuretic Pept 505 pg/mL (5-100)
[2020-12-08] MEDS: methylPREDNISolone SOD SUCC 125 MG VIAL IV PUSH (13:42)
[2020-12-08] MEDS: SODIUM CHLORIDE 0.9% IV 1,000 ML 999 ML IV CONT (13:42)
--- NOTE | 2020-12-08 15:38 | PC.NURSE ---
Note pt becomes winded quite easily when getting up to the bedside commode. Pt placed on 2L/NC per order Dr. Ireland.
--- NOTE | 2020-12-08 15:43 | PC.NURSE ---
Floor unable to take report at this time.
--- NOTE | 2020-12-08 16:23 | ADMGEN ---
This patient, Gi Valenzuela, was admitted to Medical Room 340-01. Patient/family oriented to hospital policies and general routines including ID bracelet, bed and alarms, visiting hours, pain management, procedures, bathroom and other care routines, personal items, smoking policy, room service/diet, and visiting hours. Information on how to activate the Rapid Response Team has been discussed. Patient/Family are encouraged to report perceived risks to care and to ask questions if they do not understand what they are told or what they should do.
[2020-12-08] MEDS: SODIUM CHLORIDE 0.9% IV 1,000 ML 125 ML IV CONT (16:49)
[2020-12-08] MEDS: hydrALAZINE HCL 20 MG/ML VIAL 10 MG IV PUSH (17:40)
--- NOTE | 2020-12-08 18:37 | PM.IMHP ---
H&P: HPI History of Present Illness Date/Time: 12/08/20 18:37Thichidi is a 65-year-old female patient who was discharged from 12/06/2020 with pneumonia. The patient had been started on a azithromycin Rocephin and was started on Solu-Medrol. She was COVID negative. Blood cultures grew nothing. Sputum culture showed Gram-positive cocci preliminary. The patient came to the emergency room for complaints of shortness of breath today. The patient has a history of COPD. The patient was given nebulizer treatments Solu-Medrol IV fluids and Zosyn. chest x-ray was showing no acute cardiopulmonary abnormality. A CTa shows no pulmonary emboli identified. Persistent but improved bilateral nodular ground-glass opacities. Consistent with resolving infection inflammation. The patient was placed on oxygen at 2 L per nasal cannula. The patient is being admitted to inpatient services on the date of service is 12/08/2020 Chief Complaint: sob Review of Systems Review of Systems: All systems reviewed & are unremarkable except as noted in HPI and below Constitutional: Constitutional: Reports as per HPI and Reports no additional constitutional complaints Eyes: Eyes: Reports as per HPI and Reports no additional eye complaints ENT: Reports system reviewed and no additional complaints, except as documented and Reports Normal hearing present Cardiovascular: Cardiovascular: Reports no additional cardiovascular complaints Respiratory: Respiratory: Reports no additional respiratory complaints and Reports no additional respiratory complaints Gastrointestinal: Gastrointestinal: Reports as per HPI and Reports no additional gastrointestinal complaints Musculoskeletal: Musculoskeletal: Reports no additional musculoskeletal complaints Integumentary/Breasts: Skin/Breast: Reports system reviewed and no additional complaints, except as docu and Reports as per HPI Neurologic: Reports system reviewed and no additional complaints, except as documented, Reports as per HPI and Reports Normal hearing present Psychiatric: Psychiatric: Reports no additional psychiatric complaints and Reports as per HPI Endocrine: Endocrine: Reports no additional endocrine complaints Hematologic/Lymphatic: Hematologic/Lymphatic: Reports no additional hematologic/lymphatic complaints Allergic/Immunologic: Allergic/Immunologic: Reports no additional allergic/immunologic complaints [facility] Past Medical History Medical History (Updated 12/08/20 @ 19:10 by Bettye Fox NP) Adenoma of left adrenal gland Age-related osteoporosis without current pathological fracture Chronic infection of sinus Colon polyps COPD (chronic obstructive pulmonary disease) Depression Fracture of finger of right hand GERD (gastroesophageal reflux disease) HTN (hypertension) Hypercholesterolemia Hypothyroidism IBS (irritable bowel syndrome) IFG (impaired fasting glucose) Mixed hyperlipidemia Surgical History Surgical History H/O cataract extraction September 2020 History of thyroidectomy S/P cholecystectomy Status post left breast lumpectomy Family History Family History Sibling Family history of malignant neoplasm of cervix Multiple myeloma Father Malignant neoplasm of prostate Family history of lung cancer Social History Social History (Updated 12/08/20 @ 18:47 by Bettye Fox NP) Social History: The patient lives with her . She has 2 children. 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 the patient stated that she used to smoke and quit 2 weeks ago. The patient desires to be a full code and her is a durable power commonwealth attorney for healthcare. Years smoked: 45 Smoking status: Former smoker Tobacco type: cigarettes Second hand tobacco smoke exposure: No Alcohol intake: current Drinks per week: 2 Substance use: never Substance
[2020-12-08 20:51] LABS: Glucose Point of Care 237 mg/dl (65-105)
[2020-12-08 22:43] LABS: Anion Gap 6 mmol/L (8-16); Blood Urea Nitrogen 9 mg/dL (7-17); Calcium 7.9 mg/dL (8.4-10.2); Carbon Dioxide 30 mmol/L (22-30); Chloride 82 mmol/L (98-107); Estimated CRCL calculation 79 ml/min; Estimated Glomerular Filt Rate > 60; Glucose 240 mg/dL (65-105); Potassium 3.2 mmol/L (3.4-5.0); Sodium 118 mmol/L (137-145)
[2020-12-08] MEDS: methylPREDNISolone SOD SUCC 125 MG VIAL 60 MG IV PUSH (22:52)
[2020-12-09] VITALS (16 sets, daily range): BP systolic 120–151; BP diastolic 62–67; PULSE 79–119; RESP 18–22; TEMP 35.9–36.9; O2SAT 86–97
[2020-12-09 00:38] LABS: Sodium Urine Random 17 meq/L
[2020-12-09] MEDS: IPRATROPIUM BR 0.02% INH SOLN 0.5 MG/2.5 ML VIAL INHALATION ×2 (02:00→07:13)
[2020-12-09] MEDS: ALBUTEROL SULFATE NEB 2.5 MG/0.5 ML INH 5 MG INHALATION ×4 (02:00→20:09)
[2020-12-09] MEDS: SODIUM CHLORIDE 0.9% IV 1,000 ML 75 ML IV CONT ×2 (05:41→20:00)
[2020-12-09] MEDS: methylPREDNISolone SOD SUCC 125 MG VIAL 60 MG IV PUSH ×3 (05:42→21:39)
[2020-12-09] MEDS: LEVOTHYROXINE SODIUM 88 MCG TABLET PO (05:42)
[2020-12-09 05:51] LABS: Hematocrit 34.9 % (37.0-47.0); Hemoglobin 12.7 g/dL (12.0-15.0); Immature Granulocyte Absolute 0.08 K/mm3 (0.00-0.031); Immature Granulocyte Percent A 0.9 % (0-0.5); Lymphocytes Absolute Auto 0.91 K/mm3 (0.9-3.2); Mean Corpuscular HGB Conc 36.4 g/dl (32-36); Mean Corpuscular Hemoglobin 30.5 pg (26-34); Mean Corpuscular Volume 83.7 fl (80-100); Mean Platelet Volume 9.5 fl (7.4-10.4); Monocytes Absolute Auto 0.3 K/mm3 (0.1-0.6); Monocytes Percent Auto 2.7 % (2.6-8.5); Neutrophils Absolute Auto 7.9 K/mm3 (1.3-6.7); Neutrophils Percent Auto 86.4 % (45.5-73.1); Platelet Count Result 363 k/mm3 (150-375); Red Blood Count 4.17 M/mm3 (4.2-5.4); White Blood Count 9.1 K/mm3 (4.5-10.0)
[2020-12-09 06:03] LABS: Alanine Aminotransferase 25 U/L (4-35); Albumin Level 3.9 g/dL (3.5-5.1); Alkaline Phosphatase 71 U/L (38-126); Anion Gap 9 mmol/L (8-16); Aspartate Amino Transferase 31 U/L (14-36); Bilirubin,Total 0.3 mg/dL (0.2-1.3); Blood Urea Nitrogen 8 mg/dL (7-17); Calcium 8.5 mg/dL (8.4-10.2); Carbon Dioxide 29 mmol/L (22-30); Chloride 86 mmol/L (98-107); Estimated CRCL calculation 55 ml/min; Estimated Glomerular Filt Rate > 60; Glucose 173 mg/dL (65-105); Magnesium 1.8 mg/dL (1.6-2.3); Potassium 3.2 mmol/L (3.4-5.0); Sodium 124 mmol/L (137-145)
[2020-12-09 07:01] LABS: Thyroid Stimulating Hormone Reflex 0.749 uIU/mL (0.465-4.68)
[2020-12-09 08:14] LABS: Glucose Point of Care 188 mg/dl (65-105)
--- NOTE | 2020-12-09 08:40 | P.PNIM_ITS ---
Progress Note: A&P Assessment and Plan (1) COPD (chronic obstructive pulmonary disease): Code(s): J44.9 - Chronic obstructive pulmonary disease, unspecified Status: Chronic Assessment and Plan: * Chest xray is unchanged since discharge * Patient presents in a tripod positioning * Supplemental oxygen to maintain saturations above 90% * Walk test * Solu-Medrol 60mg IV push Q8hr. * Consult pulmonology Thank you for recommendations * Continue with nebulizer treatment * azithromycin 250mg IV daily and Rocephin 1gm IV daily * Anoro Ellipta 1 puff daily * Talked to Dr. Alexandra this morning about patient which he did recommend the medications that I changed her to * He did say that this patient needs to see him in the office for a PFT. * Smoking cessation has been provided again to the patient. * sputum culture has been repeated and pending (2) Acute hyponatremia: Code(s): E87.1 - Hypo-osmolality and hyponatremia Status: Acute Assessment and Plan: * sodium on admission was 118. Currently it is 120 * patient states she was vomiting * patient was placed on sodium chloride at 75 mils an hour * trend sodium * labs in the am (3) GERD (gastroesophageal reflux disease): Qualifiers: Esophagitis presence: without esophagitis Qualified Code(s): K21.9 - Gastro-esophageal reflux disease without esophagitis Code(s): K21.9 - Gastro-esophageal reflux disease without esophagitis Status: Acute Assessment and Plan: * Protonix 40 mg p.o. daily (4) Depression: Code(s): F32.9 - Major depressive disorder, single episode, unspecified Status: Acute Assessment and Plan: * not currently on any medications. * trend mood * start medications if needed. (5) HTN (hypertension): Qualifiers: Hypertension type: essential hypertension Qualified Code(s): I10 - Essential (primary) hypertension Code(s): I10 - Essential (primary) hypertension Status: Acute Assessment and Plan: * Blood pressure currently a 120/62 * PRN hydralazine with parameters. * trend blood pressures * adjust medications as needed (6) Type 2 diabetes mellitus without complications: Qualifiers: Diabetes mellitus mcc insulin use: without termite treater helper use Qualified Code(s): E11.9 - Type 2 diabetes mellitus without complications Code(s): E11.9 - Type 2 diabetes mellitus without complications Status: Acute Assessment and Plan: * Current glucose is 173 * Accu-Cheks AC and HS * heart healthy diet * sliding scale insulin * adjust medications as needed (7) Hypothyroidism: Code(s): E03.9 - Hypothyroidism, unspecified Status: Acute Assessment and Plan: * Thyroid level 0.749 * Continue with levothyroxine 88 mcg p.o. am * educate patient about taking that drug in the morning. (8) HLD (hyperlipidemia): Code(s): E78.5 - Hyperlipidemia, unspecified Status: Acute Assessment and Plan: continue with home medications. Subjective Date/time seen: 12/09/20 10:08 Interval history: Patient is 65-year-old female with past medical history of COPD, depression, GERD, hypertension, and hypothyroidism who presents to the ED for shortness of breath on 12/08/2020. Today patient is about the same she
--- NOTE | 2020-12-09 08:40 | PM.IMPN ---
Progress Note: A&P Assessment and Plan (1) COPD (chronic obstructive pulmonary disease): Code(s): J44.9 - Chronic obstructive pulmonary disease, unspecified Status: Chronic Assessment and Plan: Chest xray is unchanged since discharge Patient presents in a tripod positioning Supplemental oxygen to maintain saturations above 90% Walk test Solu-Medrol 60mg IV push Q8hr. Consult pulmonology Thank you for recommendations Continue with nebulizer treatment azithromycin 250mg IV daily and Rocephin 1gm IV daily Anoro Ellipta 1 puff daily Talked to Dr. Alexandra this morning about patient which he did recommend the medications that I changed her to He did say that this patient needs to see him in the office for a PFT. Smoking cessation has been provided again to the patient. sputum culture has been repeated and pending (2) Acute hyponatremia: Code(s): E87.1 - Hypo-osmolality and hyponatremia Status: Acute Assessment and Plan: sodium on admission was 118. Currently it is 120 patient states she was vomiting patient was placed on sodium chloride at 75 mils an hour trend sodium labs in the am (3) GERD (gastroesophageal reflux disease): Qualifiers: Esophagitis presence: without esophagitis Qualified Code(s): K21.9 - Gastro-esophageal reflux disease without esophagitis Code(s): K21.9 - Gastro-esophageal reflux disease without esophagitis Status: Acute Assessment and Plan: Protonix 40 mg p.o. daily (4) Depression: Code(s): F32.9 - Major depressive disorder, single episode, unspecified Status: Acute Assessment and Plan: not currently on any medications. trend mood start medications if needed. (5) HTN (hypertension): Qualifiers: Hypertension type: essential hypertension Qualified Code(s): I10 - Essential (primary) hypertension Code(s): I10 - Essential (primary) hypertension Status: Acute Assessment and Plan: Blood pressure currently a 120/62 PRN hydralazine with parameters. trend blood pressures adjust medications as needed (6) Type 2 diabetes mellitus without complications: Qualifiers: Diabetes mellitus long term care administrator insulin use: without long term care administrator use Qualified Code(s): E11.9 - Type 2 diabetes mellitus without complications Code(s): E11.9 - Type 2 diabetes mellitus without complications Status: Acute Assessment and Plan: Current glucose is 173 Accu-Cheks AC and HS heart healthy diet sliding scale insulin adjust medications as needed (7) Hypothyroidism: Code(s): E03.9 - Hypothyroidism, unspecified Status: Acute Assessment and Plan: Thyroid level 0.749 Continue with levothyroxine 88 mcg p.o. am educate patient about taking that drug in the morning. (8) HLD (hyperlipidemia): Code(s): E78.5 - Hyperlipidemia, unspecified Status: Acute Assessment and Plan: continue with home medications. Subjective Date/time seen: 12/09/20 10:08 Interval history: Patient is 65-year-old female with past medical history of COPD, depression, GERD, hypertension, and hypothyroidism who presents to the ED for shortness of breath on 12/08/2020. Today patient is about the same she still says she is short of breath and states that when she is in a tripod position that she feels better and breathing is easier. she was also told in the ED that she had bronchitis and also stated that she was showed her x-ray which look the same as before she left. Upon auscultation the patient did some very wheezy and tight. I did tell patient upon discharge that she would need to see a plastics engineering teacher however today due to the holiday I did call Dr. Alexandra about this patient and suggestions were given. I did start the patient on Anoro and albuterol. H
[2020-12-09] MEDS: CHOLECALCIFEROL 1,000 UNITS TABLET 2000 UNITS PO (09:00)
[2020-12-09] MEDS: PANTOPRAZOLE 40 MG TABLET PO (09:02)
[2020-12-09] MEDS: ENOXAPARIN 40 MG/0.4 ML SYRINGE SUB-Q (09:06)
[2020-12-09] MEDS: FUROSEMIDE INJ 40 MG/4 ML VIAL 20 MG IV PUSH (10:03)
[2020-12-09] MEDS: UMECLIDINIUM/VILANTEROL 62.5-25 MCG ELLIPTA 1 PUFF INHALATION (11:14)
--- NOTE | 2020-12-09 12:03 | HOMEO2EVAL ---
Evaluation was performed at [facility] Home Oxygen Evaluation RC: Home Oxygen (O2) Evaluation Start: 12/09/20 08:54 Freq: ONCE Status: Active Protocol: RPE Activity Type Activity Date Activity User E-Sign Co-Sign Detail Recorded Client Recorded Date Recorded By Document 12/09/20 11:50 CLC [email or web address] 12/09/20 12:02 CLC Document 12/09/20 11:52 CLC [email or web address] 12/09/20 12:02 CLC Document 12/09/20 11:56 CLC [email or web address] 12/09/20 12:02 CLC 12/09/20 12/09/20 12/09/20 11:50 11:52 11:56 Home O2 Evaluation Test Phase Resting Resting Exercise Oxygen Delivery Room Air Nasal Cannula Nasal Cannula Oxygen Flow Rate (L/min) 2 2 Pulse Oximetry (90-100 %) 86 L 90 91 Pulse Rate (60-100 beats/min) 112 H 111 H 119 H Activity Tolerance Good Rating of Perceived Dyspnea (PD) +1 Mild, Noticeable to the Participant but Not to an Observer Rate of Perceived Exertion (PE) 6 Very, very light Ambulation Distance (feet) 175 Treatment Charges O2 Evaluation - Inpatient
[2020-12-09 12:48] LABS: Glucose Point of Care 278 mg/dl (65-105)
[2020-12-09] MEDS: INSULIN ASPART (*BKC) 100 UNITS/ML SUB-Q ×2 (12:50→17:22)
[2020-12-09] MEDS: POTASSIUM CHLORIDE 20 MEQ PACKET (FOR LIQUID) 40 MEQ PO (14:08)
[2020-12-09 17:20] LABS: Glucose Point of Care 228 mg/dl (65-105)
[2020-12-09 21:51] LABS: Glucose Point of Care 306 mg/dl (65-105)
[2020-12-10] VITALS (9 sets, daily range): BP systolic 141–159; BP diastolic 66–75; PULSE 88–109; RESP 16–20; TEMP 35.9–36.4; O2SAT 93–96
[2020-12-10] MEDS: ALBUTEROL SULFATE NEB 2.5 MG/0.5 ML INH 5 MG INHALATION ×3 (02:11→15:20)
[2020-12-10] MEDS: methylPREDNISolone SOD SUCC 125 MG VIAL 60 MG IV PUSH ×2 (06:17→14:50)
[2020-12-10] MEDS: LEVOTHYROXINE SODIUM 88 MCG TABLET PO (06:17)
[2020-12-10 07:40] LABS: Glucose Point of Care 177 mg/dl (65-105)
[2020-12-10 08:45] LABS: Alanine Aminotransferase 22 U/L (4-35); Albumin Level 3.9 g/dL (3.5-5.1); Alkaline Phosphatase 68 U/L (38-126); Anion Gap 4 mmol/L (8-16); Aspartate Amino Transferase 22 U/L (14-36); Bilirubin,Total 0.3 mg/dL (0.2-1.3); Blood Urea Nitrogen 6 mg/dL (7-17); Carbon Dioxide 33 mmol/L (22-30); Chloride 95 mmol/L (98-107); Estimated CRCL calculation 55 ml/min; Estimated Glomerular Filt Rate > 60; Glucose 175 mg/dL (65-105); Potassium 3.2 mmol/L (3.4-5.0); Sodium 132 mmol/L (137-145)
[2020-12-10] MEDS: UMECLIDINIUM/VILANTEROL 62.5-25 MCG ELLIPTA 1 PUFF INHALATION (09:00)
[2020-12-10] MEDS: CHOLECALCIFEROL 1,000 UNITS TABLET 2000 UNITS PO (09:00)
[2020-12-10] MEDS: PANTOPRAZOLE 40 MG TABLET PO (09:01)
[2020-12-10] MEDS: ENOXAPARIN 40 MG/0.4 ML SYRINGE SUB-Q (09:01)
[2020-12-10 09:04] LABS: Hematocrit 36.4 % (37.0-47.0); Hemoglobin 12.7 g/dL (12.0-15.0); Mean Corpuscular HGB Conc 34.9 g/dl (32-36); Mean Corpuscular Hemoglobin 31.1 pg (26-34); Mean Platelet Volume 8.8 fl (7.4-10.4); Platelet Count Result 449 k/mm3 (150-375); Red Blood Count 4.09 M/mm3 (4.2-5.4); Red Cell Distribution Width 13.4 % (11.5-14.5); White Blood Count 23.6 K/mm3 (4.5-10.0)
--- NOTE | 2020-12-10 09:54 | P.DS_ITS ---
DS: Admitting Diagnosis Admitting Diagnosis Admitting Diagnosis: COPD Exacerbation DS: Discharge Diagnosis Discharge Diagnosis (1) COPD (chronic obstructive pulmonary disease): Qualifiers: COPD type: COPD with acute exacerbation Qualified Code(s): J44.1 - Chronic obstructive pulmonary disease with (acute) exacerbation Code(s): J44.9 - Chronic obstructive pulmonary disease, unspecified Status: Chronic Assessment and Plan: * Acute exacerbation of COPD * Chest xray is unchanged since discharge * Patient presents in a tripod positioning * Supplemental oxygen to maintain saturations above 90% * Walk test * Solu-Medrol 60mg IV push Q8hr, Prednisone 50 mg PO daily for 5 days * Consult pulmonology Thank you for recommendations * Continue with nebulizer treatment * azithromycin 250mg IV daily and Rocephin 1gm IV daily * Anoro Ellipta 1 puff daily * Talked to Dr. Alexandra this morning about patient which he did recommend the medications that I changed her to * He did say that this patient needs to see him in the office for a PFT. * Smoking cessation has been provided again to the patient. * sputum culture has been repeated and pending (2) Acute hyponatremia: Code(s): E87.1 - Hypo-osmolality and hyponatremia Status: Acute Assessment and Plan: * sodium on admission was 118. Currently it is 120 * patient states she was vomiting * patient was placed on sodium chloride at 75 mils an hour * trend sodium * labs in the am (3) GERD (gastroesophageal reflux disease): Qualifiers: Esophagitis presence: without esophagitis Qualified Code(s): K21.9 - Gastro-esophageal reflux disease without esophagitis Code(s): K21.9 - Gastro-esophageal reflux disease without esophagitis Status: Acute Assessment and Plan: * Protonix 40 mg p.o. daily (4) Depression: Qualifiers: Depression Type: unspecified Qualified Code(s): F32.9 - Major depressi ve disorder, single episode, unspecified Code(s): F32.9 - Major depressive disorder, single episode, unspecified Status: Acute Assessment and Plan: * not currently on any medications. * trend mood * start medications if needed. (5) HTN (hypertension): Qualifiers: Hypertension type: essential hypertension Qualified Code(s): I10 - Essential (primary) hypertension Code(s): I10 - Essential (primary) hypertension Status: Acute Assessment and Plan: * Blood pressure currently a 120/62 * PRN hydralazine with parameters. * trend blood pressures * adjust medications as needed (6) Type 2 diabetes mellitus without complications: Qualifiers: Diabetes mellitus filler leaf cutter long insulin use: without shelter use Qualified Code(s): E11.9 - Type 2 diabetes mellitus without complications Code(s): E11.9 - Type 2 diabetes mellitus without complications Status: Acute Assessment and Plan: * Current glucose is 173 * Accu-Cheks AC and HS * heart healthy diet * sliding scale insulin * adjust medications as needed (7) Hypothyroidism: Qualifiers: Hypothyroidism type: unspecified Qualified Code(s): E03.9 - Hypothyroidism, unspecified Code(s): E03.9 - Hypothyroidism, unspecified Status: Acute Assessment and Plan: * Thyroid level 0.749 * C
--- NOTE | 2020-12-10 09:54 | PM.DS ---
DS: Admitting Diagnosis Admitting Diagnosis Admitting Diagnosis: COPD Exacerbation DS: Discharge Diagnosis Discharge Diagnosis (1) COPD (chronic obstructive pulmonary disease): Qualifiers: COPD type: COPD with acute exacerbation Qualified Code(s): J44.1 - Chronic obstructive pulmonary disease with (acute) exacerbation Code(s): J44.9 - Chronic obstructive pulmonary disease, unspecified Status: Chronic Assessment and Plan: Acute exacerbation of COPD Chest xray is unchanged since discharge Patient presents in a tripod positioning Supplemental oxygen to maintain saturations above 90% Walk test Solu-Medrol 60mg IV push Q8hr, Prednisone 50 mg PO daily for 5 days Consult pulmonology Thank you for recommendations Continue with nebulizer treatment azithromycin 250mg IV daily and Rocephin 1gm IV daily Anoro Ellipta 1 puff daily Talked to Dr. Alexandra this morning about patient which he did recommend the medications that I changed her to He did say that this patient needs to see him in the office for a PFT. Smoking cessation has been provided again to the patient. sputum culture has been repeated and pending (2) Acute hyponatremia: Code(s): E87.1 - Hypo-osmolality and hyponatremia Status: Acute Assessment and Plan: sodium on admission was 118. Currently it is 120 patient states she was vomiting patient was placed on sodium chloride at 75 mils an hour trend sodium labs in the am (3) GERD (gastroesophageal reflux disease): Qualifiers: Esophagitis presence: without esophagitis Qualified Code(s): K21.9 - Gastro-esophageal reflux disease without esophagitis Code(s): K21.9 - Gastro-esophageal reflux disease without esophagitis Status: Acute Assessment and Plan: Protonix 40 mg p.o. daily (4) Depression: Qualifiers: Depression Type: unspecified Qualified Code(s): F32.9 - Major depressive disorder, single episode, unspecified Code(s): F32.9 - Major depressive disorder, single episode, unspecified Status: Acute Assessment and Plan: not currently on any medications. trend mood start medications if needed. (5) HTN (hypertension): Qualifiers: Hypertension type: essential hypertension Qualified Code(s): I10 - Essential (primary) hypertension Code(s): I10 - Essential (primary) hypertension Status: Acute Assessment and Plan: Blood pressure currently a 120/62 PRN hydralazine with parameters. trend blood pressures adjust medications as needed (6) Type 2 diabetes mellitus without complications: Qualifiers: Diabetes mellitus superintendent terminal insulin use: without superintendent terminal use Qualified Code(s): E11.9 - Type 2 diabetes mellitus without complications Code(s): E11.9 - Type 2 diabetes mellitus without complications Status: Acute Assessment and Plan: Current glucose is 173 Accu-Cheks AC and HS heart healthy diet sliding scale insulin adjust medications as needed (7) Hypothyroidism: Qualifiers: Hypothyroidism type: unspecified Qualified Code(s): E03.9 - Hypothyroidism, unspecified Code(s): E03.9 - Hypothyroidism, unspecified Status: Acute Assessment and Plan: Thyroid level 0.749 Continue with levothyroxine 88 mcg p.o. am educate patient about taking that drug in the morning. (8) HLD (hyperlipidemia): Qualifiers: Hyperlipidemia type: unspecified Qualified Code(s): E78.5 - Hyperlipidemia, unspecified Code(s): E78.5 - Hyperlipidemia, unspecified Status: Acute Assessment and Plan: continue with home medications. DS: Summary Hospital Course Hospital Course: Patient is a 68-year-old female with past medical history of COPD, depression, GERD, hypertension, and hypoth
[2020-12-10 11:32] LABS: Basophils Absolute Auto 0.1 K/mm3 (0.0-0.1); Basophils Percent Auto 0.2 % (0.2-1.2); Hematocrit 39.1 % (37.0-47.0); Hemoglobin 13.2 g/dL (12.0-15.0); Immature Granulocyte Absolute 0.61 K/mm3 (0.00-0.031); Immature Granulocyte Percent A 2.1 % (0-0.5); Lymphocytes Absolute Auto 0.78 K/mm3 (0.9-3.2); Lymphocytes Percent Auto 2.6 % (18.3-44.2); Mean Corpuscular HGB Conc 33.8 g/dl (32-36); Mean Corpuscular Hemoglobin 30.3 pg (26-34); Mean Corpuscular Volume 89.7 fl (80-100); Mean Platelet Volume 8.7 fl (7.4-10.4); Monocytes Percent Auto 3.2 % (2.6-8.5); Neutrophils Absolute Auto 27.2 K/mm3 (1.3-6.7); Neutrophils Percent Auto 91.9 % (45.5-73.1); Platelet Count Result 477 k/mm3 (150-375); Red Blood Count 4.36 M/mm3 (4.2-5.4); Red Cell Distribution Width 13.5 % (11.5-14.5); White Blood Count 29.6 K/mm3 (4.5-10.0)
[2020-12-10 12:19] LABS: Glucose Point of Care 237 mg/dl (65-105)
[2020-12-10] MEDS: INSULIN ASPART (*BKC) 100 UNITS/ML SUB-Q (12:54)
[2020-12-12 17:24] LABS: Osmolality, Urine 309 mOsm/kg (50-1200)
--- NOTE | 2020-12-14 10:18 | PC.NURSE ---
Patient call back on 12/14/20: patient and spouse had concerns of difficulty scheduling appt with Dr. Alexandra. RN spoke with Dr. Alexandra to confirm process of scheduling and he states that Dr. Urban will need to refer patient per insurance guidelines. Call to [facility] to request that concerns r/t diarrhea be addressed. Per [employer], ok to use immodium OTC as last resort, continue yogurt and probiotic. Patient called back with clarification to concerns.
== END 2020-12-10 18:05 | disposition home health service (06) | DRG 191 ==
LOC: ANHED 14:52 → ANH3MED 15:18
PROVIDERS: Emergency Medicine; Nurse Practitioner; Admitting Provider Internal Medicine; Emergency Provider Emergency Medicine; PCP Family Medicine; Visit Provider Nurse Practitioner
DX: J44.1 Chronic obstructive pulmonary disease with (acute) exacerbation (principal); E87.1 Hypo-osmolality and hyponatremia; K21.9 Gastro-esophageal reflux disease without esophagitis; F32.9 Major depressive disorder, single episode, unspecified; I10 Essential (primary) hypertension; E11.9 Type 2 diabetes mellitus without complications; E89.0 Postprocedural hypothyroidism; E78.2 Mixed hyperlipidemia; Z79.899 Other long term (current) drug therapy; Z87.891 Personal history of nicotine dependence; Z98.49 Cataract extraction status, unspecified eye
CPT/HCPCS: 36415; 71046; 71275; 80048; 80053; 82948; 83605; 83735; 83880; 83935; 84300; 84443; 85025; 85027; 85380; 87070; 87205; 93005; 94618; 94640; 96361; 96365; 96375; 99285; A9270; G0378; J0360; J0456; J0696; J1650; J1815; J1940; J2543; J2930; J7030; Q9967

== ENCOUNTER 2021-03-05 14:00 | Outpatient (CLI) | payer MEDICARE, OTHER, SELFPAY ==
[2021-03-05 14:28] LABS: Basophils Absolute Auto 0.1 K/mm3 (0.0-0.1); Basophils Percent Auto 0.6 % (0.2-1.2); Eosinophils Absolute Auto 0.1 K/mm3 (0-0.3); Eosinophils Percent Auto 1.1 % (0-4.4); Hematocrit 39.7 % (37.0-47.0); Hemoglobin 13.4 g/dL (12.0-15.0); Immature Granulocyte Absolute 0.02 K/mm3 (0.00-0.031); Immature Granulocyte Percent A 0.2 % (0-0.5); Lymphocytes Absolute Auto 2.77 K/mm3 (0.9-3.2); Lymphocytes Percent Auto 33.2 % (18.3-44.2); Mean Corpuscular HGB Conc 33.8 g/dl (32-36); Mean Corpuscular Hemoglobin 29.9 pg (26-34); Mean Corpuscular Volume 88.6 fl (80-100); Mean Platelet Volume 8.6 fl (7.4-10.4); Monocytes Absolute Auto 0.7 K/mm3 (0.1-0.6); Monocytes Percent Auto 8.2 % (2.6-8.5); Neutrophils Absolute Auto 4.7 K/mm3 (1.3-6.7); Neutrophils Percent Auto 56.7 % (45.5-73.1); Platelet Count Result 329 k/mm3 (150-375); Red Blood Count 4.48 M/mm3 (4.2-5.4); Red Cell Distribution Width 13.1 % (11.5-14.5); White Blood Count 8.3 K/mm3 (4.5-10.0)
[2021-03-05 14:36] LABS: Blood Urea Nitrogen 9 mg/dL (8-26); Carbon Dioxide 27 mmol/L (22-30); Chloride 99 mmol/L (98-109); Estimated Glomerular Filt Rate > 60; Glucose 136 mg/dL (70-105); Potassium 4.4 mmol/L (3.5-4.9); Sodium 139 mmol/L (138-146)
== END 2021-03-05 14:01 | disposition home or self-care (01) ==
LOC: ANHLAB 14:04
PROVIDERS: PCP Family Medicine; Visit Provider Internal Medicine Hematology & Oncology
DX: D72.829 Elevated white blood cell count, unspecified (principal)
CPT/HCPCS: 36415; 80048; 85025

== ENCOUNTER → 2021-12-02 11:21 | Outpatient (CLI) | payer MEDICARE, OTHER, SELFPAY ==
--- NOTE | ~2021-12-02 | MM_ITS ---
EXAMINATION: MM screening eddie BI w [facility] HISTORY: Screening TECHNIQUE: Craniocaudal and mediolateral oblique 3-D tomosynthesis images were obtained and synthetic 2-D images were generated. CAD analysis was submitted and interpreted. COMPARISON: Comparison to multiple prior studies sequentially, with oldest reviewed study dated 01/2016. BREAST PARENCHYMAL COMPOSITION: The breasts are heterogenously dense, which may obscure small masses. FINDINGS: There is a developing asymmetry in the medial aspect of the right breast on CC view. There is developing asymmetry in the outer aspect of the left breast anteriorly on cc view. IMPRESSION: 1. Developing bilateral breast asymmetries. 2. Additional mammographic views and possible breast ultrasound are recommended. BI-RADS Category 0: Incomplete: Needs additional imaging evaluation. Reviewed, dictated and finalized at location A. IMPRESSION: 1. Developing bilateral breast asymmetries. 2. Additional mammographic views and possible breast ultrasound are recommended . BI-RADS Category 0: Incomplete: Needs additional imaging evaluation.
== END ==
PROVIDERS: PCP Family Medicine; Visit Provider Family Medicine
DX: Z12.31 Encounter for screening mammogram for malignant neoplasm of breast (principal); R92.8 Other abnormal and inconclusive findings on diagnostic imaging of breast
CPT/HCPCS: 77063; 77067

== ENCOUNTER → 2021-12-12 07:34 | Outpatient (CLI) | payer MEDICARE, OTHER, SELFPAY ==
--- NOTE | ~2021-12-12 | MMUS_ITS ---
EXAMINATION: MM diagnostic eddie BI w [facility], US breast BI complete HISTORY: Follow-up bilateral breast asymmetries. TECHNIQUE: Additional 3-D tomosynthesis images of the breasts were performed and synthetic 2-D images were generated. CAD analysis was submitted and interpreted. High resolution bilateral complete breas t ultrasound was performed. COMPARISON: Comparison to multiple prior studies sequentially, with oldest reviewed study dated 03/03. BREAST PARENCHYMAL COMPOSITION: The breasts are heterogenously dense, which may obscure small masses FINDINGS: MAMMOGRAPHIC FINDINGS: There are no suspicious masses, calcifications or architectural distortion in either breast to sugges t malignancy. There are benign bilateral breast calcifications. ULTRASOUND: Complete bilateral US of all 4 quadrants of the breasts and retroareolar region was reviewed. Right breast: At 3:00, 2 cm from the nipple there is a 4 mm cyst. No suspicious masses. Left breast: Normal heterogeneous echotexture without focal mass. IMPRESSION: 1. No evidence for malignancy in either breast. 2. Routine yearly screening mammogram and regular clinical breast examination are recommended. BI-RADS Category 2: Benign finding(s). Reviewed, dictated and finalized at location A. IMPRESSION: 1. No evidence for malignancy in either breast. 2. Routine yearly screening mammogram and regular clinical breast examination a re recommended. BI-RADS Category 2: Benign finding(s).
== END ==
PROVIDERS: PCP Family Medicine; Visit Provider Physician Assistant
DX: R92.8 Other abnormal and inconclusive findings on diagnostic imaging of breast (principal)
CPT/HCPCS: 76641; 77062; 77066; G0279

== ENCOUNTER → 2022-09-18 10:13 | Outpatient (CLI) | payer MEDICARE, OTHER, SELFPAY ==
--- NOTE | ~2022-09-18 | XR_ITS ---
EXAMINATION: XR chest 2V 09/18/2022 10:31 INDICATION: Cough PROCEDURE: 2 view chest COMPARISON: Comparison to multiple prior studies sequentially, with oldest reviewed study dated 12/03. FINDINGS: The lungs are clear. The lungs are hyperinflated which is consistent with, but not diagnost ic of chronic obstructive pulmonary disease. The cardiomediastinal silhouette is within normal limits . There are no pleural effusions. There is no pneumothorax suspected. IMPRESSION: 1: NO ACUTE CARDIOPULMONARY DISEASE. Reviewed, dictated and finalized at location L.
== END ==
PROVIDERS: PCP Family Medicine; Visit Provider Physician Assistant
DX: R05.9 Cough, unspecified (principal)
CPT/HCPCS: 71046

== ENCOUNTER 2022-10-17 10:29 | Outpatient (CLI) | payer MEDICARE, OTHER, SELFPAY ==
--- NOTE | ~2022-10-17 | CT_ITS ---
CT Scan of the Chest without Contrast: Clinical Indication: Lung cancer screening, smoking history Technique: Contiguous sections were acquired throughout the chest without intravenous contrast. Dose reduction technique was used on this scan by utilizing automated exposure control and iterative recon struction technique. The dose-length product (DLP) was 61.67 mGy-cm. COMPARISON: 12/08/2020 Findings: There is a 2.6 x 1.0 cm precarinal lymph node, significantly increased in size since prior exam (axia l image 57). There are additional shotty superior mediastinal lymph nodes, not frankly enlarged by si ze criteria, but increased as compared to prior exam as well.. There are atherosclerotic calcificatio ns of the aorta. There is no evidence of pleural or pericardial effusion. The lungs are clear. No pulmonary nodules or infiltrates are noted. Images through the upper abdomen reveal no abnormalities. Impression: Lung RADS: 1-S. Negative appearance. 12 month follow-up screening CT of the lungs recommended. 2.6 x 1.0 cm enlarged precarinal lymph node with additional increasing shotty superior mediastinal ly mph nodes. Lymphoma or other metastatic disease are certainly diagnostic considerations, versus the p ossibility of reactive/inflammatory lymph nodes. Clinical correlation required. Consider bronchoscopy for tissue sampling of the dominant lymph node to establish a histologic diagnosis. Reviewed, dictated and finalized at location M. Impression: Lung RADS: 1-S. Negative appearance. 12 month follow-up screening CT of the nehemiah gs recommended. 2.6 x 1.0 cm enlarged precarinal lymph node with additional increasing shotty s uperior mediastinal lymph nodes. Lymphoma or other metastatic disease are certa inly diagnostic considerations, versus the possibility of reactive/inflammatory lymph nodes. Clinical correlation required. Consider bronchoscopy for tissue s ampling of the dominant lymph node to establish a histologic diagnosis.
== END 2022-10-17 10:30 | disposition home or self-care (01) ==
PROVIDERS: PCP Family Medicine; Visit Provider Family Medicine
DX: Z12.2 Encounter for screening for malignant neoplasm of respiratory organs (principal); F17.210 Nicotine dependence, cigarettes, uncomplicated
CPT/HCPCS: 71271

== ENCOUNTER 2022-11-12 14:56 | Outpatient (CLI) | payer MEDICARE, OTHER, SELFPAY | END 2022-11-12 14:57 | disposition home or self-care (01) | PROVIDERS: PCP Family Medicine; Visit Provider Internal Medicine Pulmonary Disease | DX: J44.1 Chronic obstructive pulmonary disease with (acute) exacerbation (principal) | CPT/HCPCS: 36415; 82104 ==

== ENCOUNTER 2022-11-25 07:51 | Outpatient (CLI) | payer MEDICARE, OTHER, SELFPAY ==
--- NOTE | 2022-11-30 18:56 | P.PCNPFT_ITS ---
PFT Procedure Performed PFT Procedure Performed Spirometry with Pre/Post Bronchodilator Plethysmography (Lung Vol) Diffusing Cap (DLCO) Flow Vol Loop PFT Interpretation DOS: 11/25/2022 REQUESTING: Saúl Pettit MD REASON FOR TESTING: Shortness of breath PULMONARY FUNCTION TESTS Results are reliable and reproducible. Spirometry: Pre-bronchodilator FEV1 is 0.60 L, 28%, severely reduced. Pre- bronchodilator FVC is 1.89 L, 68%, mildly reduced. FEV1/ FVC ratio is 32%, extremely low consistent with airflow obstruction. After bronchodilator, there is a 7% increase in the FEV1, 0.65 L, and there is a 1% drop in the FVC, 1.87 L; these are not statistically significant changes. Lung volumes: Total lung capacity is 5.24 L, 108% predicted, normal. Residual volume is 3.15 L, 152% predicted, elevated, consistent with air trapping. RV/TLC is 60%, elevated, consistent with air trapping. Diffusion: DLCO is 7.4, 37% predicted. This is severely reduced. DLCO/VA is 2.66, 61%, mildly reduced. Airway resistance is 6.78 cm H20/L/sec, 524% predicted, elevated. Flow volume loop: Severe coving of the expiratory limb. IMPRESSION: This study shows an extremely severe obstructive ventilatory impairment, moderate air trapping, severe diffusion impairment that partially corrects for alveolar volume. There is an insignificant change with bronchodilator. Lack of response to bronchodilator should not preclude use if clinically indicated. There is no prior study for comparison. Mari Mckoy MD
--- NOTE | 2022-11-30 19:09 | WPDSIXMINUTE ---
Six Minute Walk Procedure Procedure Performed Pulmonary Stress Test (6 min walk) Six Minute Walk Six Minute Walk: DATE OF SERVICE: 11/25/2022 REQUESTING: Saúl Pettit MD REASON FOR TESTING: Shortness of breath SIX MINUTE WALK This test was conducted per ATS guidelines. The initial saturation was 91%, and initial heart rate was 92 beats per minute. Blood pressure was 151/90. The patient walked without stopping, completing 1100 ft/ 335.28 m. The saturation at the end of testing was 90%, and the heart rate was 109. The lowest saturation during the study was 88%. At 4 minutes 28 seconds, the patient had a temporary drop to 88%, remained 88-89% for approximately half a minute, recovering spontaneously. IMPRESSION: This study shows mild desaturation without hypoxemia. Distance walked is normal for age. The patient did not require supplemental oxygen with exertion. Mari Mckoy MD
== END 2022-11-25 07:52 | disposition home or self-care (01) ==
LOC: ANHPFT 07:52
PROVIDERS: PCP Family Medicine; Visit Provider Internal Medicine Pulmonary Disease
DX: J44.9 Chronic obstructive pulmonary disease, unspecified (principal); Z87.891 Personal history of nicotine dependence; R94.2 Abnormal results of pulmonary function studies
CPT/HCPCS: 94060; 94618; 94726; 94729

== ENCOUNTER 2022-12-05 14:15 | Outpatient (CLI) | payer MEDICARE, OTHER, SELFPAY ==
[2022-12-09 19:25] LABS: Alpha-1-Antitrypsin, QN 143 mg/dL (83-199)
== END 2022-12-05 14:16 | disposition home or self-care (01) ==
PROVIDERS: PCP Family Medicine; Visit Provider Physician Assistant
DX: Z14.8 Genetic carrier of other disease (principal)
CPT/HCPCS: 36415; 82103

== ENCOUNTER → 2023-01-26 13:29 | Outpatient (CLI) | payer MEDICARE, OTHER, SELFPAY ==
--- NOTE | ~2023-01-26 | MM_ITS ---
EXAMINATION: MM screening eddie BI w [facility] HISTORY: Screening mammogram TECHNIQUE: Craniocaudal and mediolateral oblique 3-D tomosynthesis images were obtained and synthetic 2-D images were generated. CAD analysis was submitted and interpreted. COMPARISON: 12/12/2021 bilateral diagnostic mammography and bilateral complete breast ultrasound examin ation 12/02/2021, 10/03/2020 bilateral screening mammogram examinations BREAST PARENCHYMAL COMPOSITION: The breasts are extremely dense, which lowers the sensitivity of mamm ography. FINDINGS: Scattered bilateral benign calcifications. There is no evidence of suspicious mass, calcifi cation, or architectural distortion to suggest malignancy in either breast. There has been no suspici ous interval change. IMPRESSION: 1. No mammographic evidence of malignancy. 2. Recommend routine screening mammography in one year. BI-RADS Category 2: Benign finding(s). Reviewed, dictated and finalized at location A.
== END ==
PROVIDERS: PCP Family Medicine; Visit Provider Family Medicine
DX: Z12.31 Encounter for screening mammogram for malignant neoplasm of breast (principal)
CPT/HCPCS: 77063; 77067

== ENCOUNTER 2023-02-26 15:11 | Outpatient (CLI) | payer MEDICARE, OTHER, SELFPAY ==
[2023-02-26 15:27] LABS: Basophils Absolute Auto 0.1 K/mm3 (0.0-0.1); Basophils Percent Auto 0.7 % (0.2-1.2); Eosinophils Absolute Auto 0.1 K/mm3 (0-0.3); Eosinophils Percent Auto 1.5 % (0-4.4); Hemoglobin 13.6 g/dL (12.0-15.0); Immature Granulocyte Absolute 0.04 K/mm3 (0.00-0.031); Immature Granulocyte Percent A 0.4 % (0-0.5); Lymphocytes Absolute Auto 2.93 K/mm3 (0.9-3.2); Lymphocytes Percent Auto 30.5 % (18.3-44.2); Mean Corpuscular Hemoglobin 31.1 pg (26-34); Mean Corpuscular Volume 91.5 fl (80-100); Mean Platelet Volume 8.3 fl (7.4-10.4); Monocytes Absolute Auto 0.9 K/mm3 (0.1-0.6); Monocytes Percent Auto 9.4 % (2.6-8.5); Neutrophils Absolute Auto 5.5 K/mm3 (1.3-6.7); Neutrophils Percent Auto 57.5 % (45.5-73.1); Platelet Count Result 370 k/mm3 (150-375); Red Blood Count 4.37 M/mm3 (4.2-5.4); Red Cell Distribution Width 13.1 % (11.5-14.5); White Blood Count 9.6 K/mm3 (4.5-10.0)
[2023-02-26 17:22] LABS: Alanine Aminotransferase 20 U/L (6-35); Albumin Level 4.3 g/dL (3.5-5.1); Alkaline Phosphatase 87 U/L (38-126); Anion Gap 4 mmol/L (8-16); Aspartate Amino Transferase 41 U/L (14-36); Bilirubin,Total 0.4 mg/dL (0.2-1.3); Blood Urea Nitrogen 9 mg/dL (7-17); Calcium 8.9 mg/dL (8.4-10.2); Carbon Dioxide 33 mmol/L (22-30); Chloride 101 mmol/L (98-107); Estimated Glomerular Filt Rate > 60; Glucose 126 mg/dL (65-110); Lactate Dehydrogenase 174 U/L (120-246); Potassium 4.3 mmol/L (3.4-5.0); Sodium 138 mmol/L (137-145)
== END 2023-02-26 15:12 | disposition home or self-care (01) ==
LOC: ANHLAB 15:14
PROVIDERS: PCP Family Medicine; Visit Provider Internal Medicine Hematology & Oncology
DX: R59.1 Generalized enlarged lymph nodes (principal)
CPT/HCPCS: 36415; 80053; 83615; 85025; 88184; 88185

== ENCOUNTER 2023-10-08 09:54 | Outpatient (CLI) | payer MEDICARE, OTHER, SELFPAY ==
--- NOTE | ~2023-10-08 | CT_ITS ---
CT Scan of the Chest without Contrast: Clinical Indication: Lung cancer screening, history of nicotine dependence Technique: Contiguous sections were acquired throughout the chest without intravenous contrast. Dose reduction technique was used on this scan by utilizing automated exposure control and iterative recon struction technique. The dose-length product (DLP) was 58.48 mGy-cm. COMPARISON: 10/17/2022 Findings: Stable enlarged mediastinal lymph nodes, most prominent in the precarinal region. Atherosclerotic jania cifications of the aorta are present. No aortic aneurysm. There is no evidence of pleural or pericardial effusion. The lungs are clear. No pulmonary nodules or infiltrates are noted. Images through the upper abdomen reveal stable left adrenal nodule. Impression: Lung RADS 1: Negative. 12 month follow-up screening CT advised. Stable mediastinal lymphadenopathy. Reviewed, dictated and finalized at [facility]. Impression: Lung RADS 1: Negative. 12 month follow-up screening CT advised. Stable mediastinal lymphadenopathy.
== END 2023-10-08 09:55 | disposition home or self-care (01) ==
LOC: ANHIMG 09:57
PROVIDERS: PCP Family Medicine; Visit Provider Internal Medicine Pulmonary Disease
DX: Z12.2 Encounter for screening for malignant neoplasm of respiratory organs (principal); Z87.891 Personal history of nicotine dependence
CPT/HCPCS: 71271

== ENCOUNTER 2024-02-01 10:44 | Outpatient (CLI) | payer MEDICARE, OTHER, SELFPAY ==
--- NOTE | ~2024-02-01 | MM_ITS ---
EXAMINATION: MM screening [facility] HISTORY: Screening TECHNIQUE: Craniocaudal and mediolateral oblique 3-D tomosynthesis images were obtained and synthetic 2-D images were generated. CAD analysis was submitted and interpreted. COMPARISON: Comparison to multiple prior studies sequentially, with oldest reviewed study dated 07/21. BREAST PARENCHYMAL COMPOSITION: Dense: The breasts are extremely dense, which lowers the sensitivity of mammography. FINDINGS: There is no evidence of suspicious mass, calcification, or architectural distortion to sugg est malignancy in either breast. There has been no suspicious interval change. IMPRESSION: 1. No mammographic evidence of malignancy. 2. Recommend routine screening mammography in one year. BI-RADS Category 1: Negative Reviewed, dictated and finalized at location B.
--- NOTE | ~2024-02-01 | DEXA_ITS ---
Bone Density Report Name: RICARDO SALOMON Age: 68 Sex: Female Ethnicity: White Date of : 1955 Indication: postmenopausal; screening for osteoporosis; height loss; asthma or emphysema; Referring Provider: JEFF ELLIS Study: Bone densitometry was performed. Exam Date: February 01, 2024 Accession number: [id number] Bone Density: Region BMD T-score Z-score Classification AP Spine(L1-L4) 1.003 -0.4 1.7 Normal Femoral Neck (Left) 0.524 -2.9 -1.1 Osteoporosis Total Hip (Left) 0.645 -2.4 -0.9 Osteopenia Femoral Neck (Right) 0.554 -2.7 -0.9 Osteoporosis Total Hip (Right) 0.665 -2.3 -0.8 Osteopenia Total Hip Mean 0.655 -2.4 -0.9 Osteopenia World Health Organization criteria for BMD impression classify patients as: Normal (T-score at or above -1.0), Osteopenia (T-score between -1.0 and -2.5), or Osteoporosis (T-score at or below -2.5). 10-year Fracture Risk: FRAX not reported because: Some T-score for Spine Total or Hip Total or Femoral Neck at or below -2.5 Clinical Information Provided by Patient: Smokes Has used the following medications: Vitamin D, Calcium Has the following medical conditions: Asthma or Emphysema Patient maximum height was 63.5 No regular weight bearing exercise Drinks caffeinated beverages Onset of menses at age 11 Number of children 2 Impression: The patient has osteoporosis, based on the Left Femoral Neck T-score. The patient has risk factors, including: smoking. Discussion: INCREASED RISK OF FRACTURE. BONE DENSITY IS UNDESIRABLY LOW AT ONE OR MORE SKELETAL SITES, CONSISTENT WITH POSTMENOPAUSAL OSTEOPOROSIS. This patient's lowest T-score meets the World Health Organization's (WHO) criteria for osteoporosis at one or more sites (T-score -2.5 or below). In untreated patients, the risk of osteoporotic fracture increases approximately two-fold for each 1.0 SD decrease in T-score. Low bone density is not the only risk factor for fracture; also consider factors such as patient's age, frailty or poor health, risk of falling, risk of injury, previous osteoporotic fracture, family history of osteoporosis, cigarette smoking, low body weight, etc. Not everyone with low bone mineral density has osteoporosis; osteomalacia and other metabolic bone disorders should also be considered. Patients who have osteoporosis should be evaluated for specific diseases and conditions (secondary causes) that may cause or contribute to bone loss. The [place] Association [employer] Clinical Endocrinologists (AACE) and National Osteoporosis Foundation (NOF) recommend pharmacologic intervention for all postmenopausal women whose T-score is in this range. The patient should follow a healthful lifestyle (good nutrition with adequate calcium and vitamin D, and appropriate weight-bearing exercise). Follow-Up:
== END 2024-02-01 10:45 | disposition home or self-care (01) ==
LOC: ANHIMG 10:45
PROVIDERS: PCP Family Medicine; Visit Provider Family Medicine
DX: Z12.31 Encounter for screening mammogram for malignant neoplasm of breast (principal); Z78.0 Asymptomatic menopausal state; M81.0 Age-related osteoporosis without current pathological fracture; M85.852 Other specified disorders of bone density and structure, left thigh; M85.851 Other specified disorders of bone density and structure, right thigh
CPT/HCPCS: 77063; 77067; 77080

== ENCOUNTER 2024-10-21 13:53 | Outpatient (CLI) | payer MEDICARE, OTHER, SELFPAY ==
--- NOTE | ~2024-10-21 | CT_ITS ---
CT Scan of the Chest without Contrast: Clinical Indication: Lung cancer screening, nicotine dependence Technique: Contiguous sections were acquired throughout the chest without intravenous contrast. Dose reduction technique was used on this scan by utilizing automated exposure control and iterative recon struction technique. The dose-length product (DLP) was 64.84 mGy-cm. COMPARISON: 10/08/2023 Findings: There is no evidence of any significant mediastinal, hilar or axillary lymphadenopathy. Atherosclerot ic calcifications of the aorta and coronary arteries are present. There is no evidence of pleural or pericardial effusion. The lungs are clear. No pulmonary nodules or infiltrates are noted. Images through the upper abdomen reveal no abnormalities. Impression: Lung RADS 1: Negative. 12 month follow-up screening CT advised. Reviewed, dictated and finalized at location . Impression: Lung RADS 1: Negative. 12 month follow-up screening CT advised.
--- OUTSIDE RECORDS SUMMARY | 2024-10-21 13:57 | XMS_ITS | Referral Summary ---
Author Organization [facility] Address [address] [place] [address] Care Team Providers Care Chemical Radiation Technician Name Role Phone Blake Urban MD Primary Care Provider Allergies Active Allergy Reactions Criticality Noted Date Comments Levofloxacin Muscle pain High 08/16/2019 Medications levothyroxine (SYNTHROID) 88 mcg tablet Take 88 mcg by mouth daily 1 Active ascorbic acid (VITAMIN C) 1,000 mg tablet Take 1,000 mg by mouth daily Active potassium chloride 2 mEq/mL injection Act mildred calcium citrate-vitamin D3 200 mg-6.25 mcg (250 unit) tablet Take by mouth Active GLUCOSAMINE SULFATE ORAL Take by mouth Act mildred umeclidinium-pancho anteroL (Anoro Ellipta) 62.5-25 mcg/actuation blister with deviceIndication s:Chronic obstructive pulmonary disease, unspecified COPD type (HCC) Inhale 1 puff daily 90 each 2 2 Active albuterol HFA (Proventil HFA) 90 mcg/actuation inhalerIndicatio ns:Chronic obstructive pulmonary disease, unspecified COPD type (HCC) Inhale 2 puffs every 6 (six) hours as needed (coughing, wheezing, shortness of breath, or chest congestion.) 6.7 g 5 2 Active Active Problems Problem Noted Date Diagnosed Date Other emphysema 01/15/2021 Social History Tobacco Use Types Packs/Day Years Used Date Smoking Tobacco: Every Day Cigarettes Last attempted to quit: 11/28/2020 AUDIT-C Answer Date Recorded Q1: How often do you have a drink containing alc ohol? 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 Gender Identity Not on file Sexual Orientation Not on file Last Filed Vital Signs Vital Sign Reading Time Taken Comments Blood Pressure 140/84 10/14/2021 11:29 AM CDT Pulse 101 10/14/2021 11:29 AM CDT Temperature 35.6 C (96.1 F) 02/27/2021 9:29 AM CDT Respiratory Rate 18 10/14/2021 11:29 AM CDT Oxygen Saturation 97% 10/14/2021 11:29 AM CDT Inhaled Oxygen Concentration - - Weight 49.6 kg (109 lb 6.4 oz) 10/14/2021 11:29 AM CDT Height 157.5 cm (5' 2 ) 10/14/2021 11:29 AM CDT Body Mass Index 20.01 10/14/2021 11:29 AM CDT Plan of Treatment Not on file Insurance MEDICARE [facility] [employer] MEDICARE [facility] [employer] Care Teams Chemical Radiation Technician Relationship Specialty Start Date End Date Blake Urban MD [address] [address] PCP - General Family Medicine 01/03/21
--- OUTSIDE RECORDS SUMMARY | 2024-10-21 13:57 | XMS_ITS | Clinical Summary ---
Author Organization [facility] Address [address] [place] [address] Care Team Providers Care Health Social Work Professor Name Role Phone Saúl Pettit MD Primary Care Provider [phone] Immunizations Immunization Administration Dates Next Due MODERNA COVID-19 (12+) MRNA, LNP-S, PF, 100 MCG/ 0.5 ML DOSE 08/17/2020,07/20/2020 Social History Tobacco Use Types Packs/Day Years Used Date Smoking Tobacco: Never Assessed Comments Unknown Sex and Gender Information Value Date Recorded Sex Assigned at Not on file Legal Sex Female 8:27 PM CDT Gender Identity Not on file Sexual Orientation Not on file Plan of Treatment Health Maintenance Due Date Last Done Comments Colorectal Cancer Screening Colonoscopy (10 Years) 1955 Hepatitis C 02/10/1972 DTaP, Tdap and Td Vaccines ( 1 - Tdap) 1973 Mammogram Screening 1994 Pneumococcal Vaccine: 50+ Years (1 of 1 - PCV) 02/10/2004 Annual Medicare Wellness Visit 2019 Dexa Scan (General) 2019 COVID-19 Vaccine (3 - 2023-2 5 season) 2024 08/17/2020, 07/20/2020 PHQ-2 (Physician [place]) 06/08/2024 RSV Immunization or 60+ Years (1 - 1-dose 75+ series) 2029 Zoster Vaccines Completed 11/16/2018, 09/03/2018 Meningococcal B Vaccine Aged Out No l onger eligible based on patient's age to complete this topic Meningococcal Vaccine Aged Out No pabilto ashley eligible based on patient's age to complete this topic RSV Immunizations Under 20 Months Aged Out No longer eligible b ased on patient's age to complete this topic Insurance MEDICARE [employer] Care Teams Health Social Work Professor Relationship Specialty Start Date End Date Salú Pettit MD [address] [place] [address] PCP - General Internal Medicine Pulmonary Disease 10/31/22
--- OUTSIDE RECORDS SUMMARY | 2024-10-21 13:57 | XMS_ITS | Clinical Summary ---
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 Gender Identity Not on file Sexual Orientation Not on file Obstetrics History Last Filed Vital Signs Vital Sign Reading [...] 10/14/2021 11:29 AM CDT Plan of Treatment Health Maintenance Due Date Last Done Comments Breast Cancer Screening-Mammogram 1955 Colon Cancer Screening-Colonoscopy 1955 Depression Screening 1955 Fall Risk Assessment 1955 Hepatitis C Screening 1955 Osteoporosis Screening-Bone Density Scan 1955 Hepatitis B Screening 02/10/1972 Pneumococcal vaccine 65+ (2 of 2 - PCV) 02/04/2019 02/04/2018 Well Visit 65+ 2019 Covid-19 Vaccine (3 - 2023-2 5 season) 2024 08/17/2020, 07/20/2020 DTaP/Tdap/Td Vaccine (2 - Td or Tdap) 01/05/2025 01/05/2015 Influenza Vaccine (Season Ended) 2025 03/23/2019, 02/03/2018, 03/17/2017, Additional history exists Zoster Vaccine Completed 11/16/2018, 09/03/2018 Insurance MEDICARE [facility] [employer] MEDICARE [facility] [employer] [employer] Care Teams Felling Machine Operator Relationship Specialty Start Date End Date Blake Urban MD [address] [facility] [address] [place] [address] PCP - General Family Medicine 01/03/21
--- OUTSIDE RECORDS SUMMARY | 2024-10-21 13:57 | XMS_ITS | Clinical Summary ---
Author Organization [facility] Address [address] [place] [address] Care Team Providers Care Knockup Worker Name Role Phone Blake Urban MD Primary Care Provider [phone] Allergies Active Allergy Reactions Criticality Noted Date Comments Levofloxacin Muscle Pain High 08/16/2019 Medications ACCU-CHEK SOFTCLIX LANCETS USE TO CHECK BLOOD SUGARS ONCE DAILY (E11.9) 0 Active albuterol HFA 90 mcg inhaler TAKE 2 PUFFS BY MOUTH EVERY 4 TO 6 HOURS NEEDED 9 Active levothyroxine 88 mcg tablet Take 88 mcg by mouth daily. 1 Active ascorbic acid, vitamin C, (VITAMIN C) 1,000 mg Tablet Take 1,000 mg by mouth daily. Active calcium citrate-vitamin D3 (CITRACAL WITH VIT D) 200 mg-6.25 mcg (250 unit) Tablet Take by mouth. Activ e GLUCOSAMINE SULFATE ORAL Take by mouth. Ac tive potassium chloride 2 mEq/mL Solution Acti ve umeclidinium-vi lanteroL (Anoro Ellipta) 62.5-25 mcg/actuation Disk with Device Take 1 Puff by inhalation daily. 2 Active Active Problems Problem Noted Date Diagnosed Date Leukocytosis (leucocytosis) 08/31/2019 Family History Medical History Relation Name Comments Cancer Brother Cancer Father Heart Disease Mother COPD Sister Cancer Sister Relation Name Status Comments Brother Father Mother Sister Social History Tobacco Use Types Packs/Day Years Used Date Smoking Tobacco: Former Cigarettes 0.5 25 0 12/1997 - 12/2022 Smokeless Tobacco: Never Alcohol Use Standard Drinks/Week Comments Never 0 (1 standard drink = 0.6 oz pur e alcohol) Comments No Sex and Gender Information Value Date Recorded Sex Assigned at Not on file 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 Gender Identity Not on file Sexual Orientation Not on file Last Filed Vital Signs Vital Sign Reading Time Taken Comments Blood Pressure 162/77 03/19/2023 1:52 PM CDT Pulse 101 03/19/2023 1:51 PM CDT Temperature 36.7 C (98.1 F) 03/19/2023 1:51 PM CDT Respiratory Rate 10 03/19/2023 1:51 PM CDT Oxygen Saturation 94% 03/19/2023 1:51 PM CDT Inhaled Oxygen Concentration - - Weight 45.4 kg (100 lb) 03/19/2023 1:51 PM CDT Height 157.5 cm (5' 2 ) 03/05/2021 2:30 PM CDT Body Mass Index 18.29 03/05/2021 2:30 PM CDT Plan of Treatment Health Maintenance Due Date Last Done Comments DTAP/TDAP/TD VACCINES (1 - Tdap) 1973 PNEUMOCOCCAL VACCINE 50+ YEA RS (1 of 2 - PCV) 1973 COLORECTAL SCREENING 1999 Colorectal Cancer Screening 1999 FIT-DNA Q 3 years 1999 FIT/FOBT Q 1 year 1999 Flex Sig/CT Colonography Q 5 years 1999 ZOSTER VACCINE (1 of 2) 02/10/2004 RSV VACCINE (60+ or ) (1 - Risk 60-74 years 1-dose series) 2014 INFLUENZA VACCINE (#1) 2024 COVID-19 Vaccine (3 - 2023-2 5 season) 2024 08/17/2020, 07/20/2020 BREAST CANCER SCREENING 01/31/2025 02/01/20 24, 02/01/2024, 12/12/2021, Additional history exists OSTEOPOROSIS SCREENING 01/31/2029 02/01/2024, 2020 Insurance MEDICARE PART A AND B [employer] P[employer] Care Teams Knockup Worker Relationship Specialty Start Date End Date Blake Urban MD [address] [facility] [address] [place] [address] PCP - General Family Practice 06/20/19
== END 2024-10-21 13:54 | disposition home or self-care (01) ==
PROVIDERS: PCP Family Medicine; Visit Provider Nurse Practitioner Family
DX: Z12.2 Encounter for screening for malignant neoplasm of respiratory organs (principal); Z87.891 Personal history of nicotine dependence
CPT/HCPCS: 71271